=== PATIENT | female | born 1940 | race Caucasian/White ===

== ENCOUNTER 2016-12-15 09:32 | Inpatient (IN) | payer MEDICARE ==
[2016-12-15] VITALS (7 sets, daily range): BP systolic 90–108; BP diastolic 52–62; PULSE 84–105; RESP 13–20; O2SAT 94–96
[~2016-12-15] VITALS: Ht 167.6 cm; Wt 97.6 kg
[2016-12-15] MEDS ORDERED: Lactated Ringer's 1,000 ML IV SCH (11:29)
[2016-12-15] MEDS ORDERED: Polyethylene Glycol (PEG) 17 Gm Powder PO PRN (11:30)
[2016-12-15] MEDS ORDERED: Glucose 40% Oral Gel 15 Gm Tube PO PRN (11:30)
[2016-12-15] MEDS ORDERED: OMEP20CA11 PO (11:35)
[2016-12-15] MEDS ORDERED: FERR-83 PO (11:35)
[2016-12-15] MEDS ORDERED: BENA20TA PO (11:35)
[2016-12-15] MEDS ORDERED: FRSM80T PO (11:35)
[2016-12-15] MEDS ORDERED: SITA100T12 PO (11:35)
[2016-12-15] MEDS ORDERED: CARV25TA2 PO (11:35)
[2016-12-15] MEDS ORDERED: GLIM4TAB2 PO (11:35)
[2016-12-15] MEDS ORDERED: PRAV20TA2 PO (11:35)
--- NOTE | 2016-12-15 11:41 | PCM.HPMED ---
Subjective Date of Service December 15, 2016 Primary Provider: Admitting Physician: Sonu Currie MD Primary Care Physician: Chavez Montoya MD Attending Physician: Sonu Currie MD Admit Status: Full Admit, Admit to [place] Team, Non-Telemetry Chief Complaint: Generalized fatigue, uremia. Possible pneumonia. History of Present Illness: This is a 76-year-old female who was been admitted to [facility] since Friday. They are she has been noted to have progressive acute on chronic renal failure. I believe she has chronic kidney disease stage 3-4. The patient notes that she was diagnosed with possible pneumonia and has been on antibiotics. She has had minimal cough and no dyspnea. No fevers or chills. She has had a slow progressive fatigue. She denies any prominent pruritus. The transfer was for reasons of probable dialysis. Given her progressive acute on chronic renal failure. The patient denies any leg edema above and beyond her chronic edema for which she wears compression stockings. No orthopnea. She denies any confusion but is extremely lethargic. They had talked her about the possibility of kidney treatments to improve her overall symptoms. She is agreeable to this. Resuscitation efforts were also discussed and she is quite clear that she wants to be a DNR/DNI. Review of Systems: She denies fevers or chills. No cough or shortness of breath. She is very fatigued. No diarrhea or blood per rectum. She denies any dysuria. No blood in the urine. They did note a decreased urinary output but no report of an urea. She denies orthopnea by mouth. She has chronic pedal edema. No recent bowel movements. No abdominal pain. She has had persistent nausea and did vomit once this morning. She denies depression but does know she is anxious and intermittently has insomnia. All else reviewed and otherwise negative except as noted in history of present illness Allergies Coded Allergies: No Known Drug Allergies (Verified Allergy, 12/15/16) [facility] [place] Diabetes mellitus 2, on oral agents. Chronic kidney disease stage IV Essential hypertension Surgical History Tubal ligation Cholecystectomy Family History Diabetes mellitus 2 and heart disease Social History Occupation: non- Hx Alcohol Use: No Hx Substance Use: No Hx Tobacco Use: No Living Arrangement: with Family Exam Exam Oriented 3. No distress. Fluent speech. Normal affect.. She is lethargic and slow to answer. She has upper and lower dentures. Normal skull. Normal nose and ears. Anicteric sclera, symmetric pupils Oropharynx is unremarkable, no facial droop. Neck is supple, normal thyroid. No adenopathy. Lungs are clear, normal effort rate. Heart is regular without murmur gallop or rub. Abdomen soft, nondistended or tender. Extremities are normal for 1+ edema both lower extremities. She also has compression stocking on the left lower leg. Good radial and pedal pulses. Skin is free of rash, lesions. No petechiae or ecchymosis. Joints are grossly normal. Cranial nerves are grossly normal. Motor strength is normal in all extremities. Normal muscular tone. Lab and Diagnostics Labs Pending X-Rays, CTs and MRIs Pending Assessment & Plan Acute renal failure, POA. We will obtain labs at this point and find her historical lab values as well. Nephrology is consulted for probable initiation of dialysis. Chronic kidney disease stage III or 4, POA. We will obtain her baseline indices Coronary pneumonia, POA. We will continue ceftriaxone and azithromycin as well as repeat chest x-ray. Diabetes most 2, POA. We will simply use correctional lispro at this point and check an A1c Essential hypertension, POA. We will obtain her medication history and resume usual medications as appropriate. We will follow clinically. She is DNR/DNI. This was confirmed today. Pain Evaluation: Adequate Pain Control Resuscitation Status: DNR/DNI:Do Not Resuscitate/Intubate Time spent 40 minutes Sonu Currie MD December 15, 2016 11:41
[2016-12-15] MEDS: Insulin LISPRO 300 Unit/3 mL Inj SUBQ SCH ×3 (12:00→22:00)
[2016-12-15] MEDS ORDERED: ALLO300T2 (12:09)
[2016-12-15] MEDS: Ondansetron 2 mg/mL 2 mL Inj IVPUSH PRN ×2 (12:15→20:29)
[2016-12-15] MEDS: Heparin 5,000 Unit/mL Inj SUBQ SCH ×3 (12:16→22:57)
--- NOTE | 2016-12-15 12:27 | DRSVH ---
PROCEDURE: X-RAY CHEST ONE VIEW, PORTABLE ([id number]) INDICATIONS: weakness TECHNIQUE: One view of the chest was acquired. COMPARISON: None. FINDINGS: Surgical changes and devices: Surgical clip at the gastroesophageal junction Lungs and pleura: No pleural effusions or pneumothorax. Lung volumes are low. Patchy opacity of the left lung base suspicious for atelectasis versus pneumonia. Streaky opacity noted in the right lung base likely represent atelectasis. Mediastinum: Mediastinal contours appear normal. Heart size is normal. Bones and chest wall: No suspicious bony lesions. Overlying soft tissues appear unremarkable. IMPRESSION: Patchy opacity in left lung base suspicious for atelectasis versus pneumonia. Dictated by: Taylor Van MD, PhD on 12/15/2016 at 12:24 Approved by: Taylor Van MD, PhD on 12/15/2016 at 12:25
[2016-12-15 12:34] LABS: Mean Corpuscular Hemoglobin 26.5 pg (27.0-35.0); Mean Corpuscular Volume 88.5 fL (81-100); NEUTROPHILS % (AUTO) 86.1 % (40-74); Platelet Count 145 bil/L (150-400)
[2016-12-15 12:35] LABS: BASOPHILS % (AUTO) 0.1 % (0-3); EOSINOPHILS % (AUTO) 0.3 % (0-5); MONOCYTES % (AUTO) 5.3 % (4-12)
[2016-12-15] MEDS: cefTRIAXone Inj 1,000 MG in Dextrose 5% Minibag Plus 50 ML IV SCH (13:52)
[2016-12-15] MEDS: Pantoprazole 20 mg ER24 Tablet PO SCH (13:52)
[2016-12-15] MEDS ORDERED: 0.9% Sodium Chloride 100 ML ONE (14:02)
[2016-12-15] MEDS ORDERED: Aspirin-Caffeine-Butalbital Tablet PO PRN (14:05)
--- NOTE | 2016-12-15 15:00 | NUR ---
MOC Admit Received patient from [facility] transported by EMT, A/O x3. With 2 peripheral IV access, patent and intact. On oxygen @ 2L via Seen by Dr. Currie upon arrival, made orders. Critical lab results relayed and Dr. Elizabeth aware. Awaiting PT evaluation. Nephro consult with Dr. Zhu. Patient will be on NPO after midnight, IVF on saline lock. Will monitor BP closely.
[2016-12-15] MEDS ORDERED: Albuterol 2.5 mg/3 mL Inhalation Solution NEB ONE (15:40)
[2016-12-15] MEDS ORDERED: Bumetanide 0.25 mg/mL 4 mL Inj IV ONE (15:40)
[2016-12-15] MEDS ORDERED: Bumetanide 0.25 mg/mL 10 mL Inj IV ONE (15:45)
[2016-12-15] MEDS ORDERED: Insulin Human REGular 300 Unit/3 mL Inj IV SCH (15:45)
[2016-12-15] MEDS ORDERED: Sodium Bicarb (50 mEq) 8.4% 1 mEq/mL 50 mL Syringe IVPUSH ONE (16:05)
--- NOTE | 2016-12-15 17:59 | CONS ---
[address] [address] CONSULTATION REPORT PATIENT: RAYSHAWN VELIZ : 1940 MR#: [id number] ADMIT: 12/15/2016 JOB ID: [id number] DATE OF SERVICE: 12/15/2016 REQUESTING PHYSICIAN: Dr. Sonu Currie. REASON FOR CONSULTATION: Management of end-stage renal disease. CHIEF COMPLAINT: Weakness, transferred from [facility] for initiation of hemodialysis. HISTORY OF PRESENT ILLNESS: This is a 76-year-old, lady with significant past medical history of type 2 diabetes, chronic kidney disease, hypertension who was transferred from [facility] for initiation of hemodialysis. The patient presented to the emergency department at [facility] with a complaint of weakness and decreased level of consciousness. The patient was taken by her relatives to the fire station and was found to have a sugar level of 33. The patient was later on sent to the emergency department at [facility]. She was told that she had pneumonia. The initial blood work that was done on December 13 showed WBC of 11.7, hemoglobin of 8.0, INR 1.0. Sodium 135, potassium 4.2, chloride 98, bicarb 23, BUN 158, creatinine 4.4, glucose of 36. The patient was started on antibiotics for community-acquired pneumonia. Apparently today, a repeat basic metabolic panel showed worsening kidney function, and I was contacted by hospitalist to accept her for initiation of hemodialysis. The patient was evaluated by Dr. Santiago on November 26, 2016. Per his note, the patient had history of stage 4 chronic kidney disease. There was no outpatient laboratory available for me to review. During my visit today, the patient complains of having low energy level. She has very poor appetite. She has had chronic lower extremity swelling. Her urine output has been low since 4 o'clock in the morning. She had history of insomnia. She has no history of PND nor orthopnea. She has no worsening shortness of breath, however, she does have history of dyspnea on exertion. Patient denies history of fever or chills. No diarrhea but positive for nausea and vomiting. Her initial blood pressure was 90/52. Per her family, they reported that this has been better. Her blood pressure was a lot lower at the [facility] which was in the 70s systolic. PAST MEDICAL HISTORY: 1. Type 2 diabetes. 2. Hypertension. 3. Dyslipidemia. 4. Denies history of heart attack, heart failure or irregular heart rhythm. 5. Denies history of CVA. 6. No history of diabetic retinopathy. PAST SURGICAL HISTORY: 1. Status post cholecystectomy. 2. Status post tubal ligation. FAMILY HISTORY: Positive for history of heart disease and diabetes in the family. SOCIAL HISTORY: Denies current use of alcohol, tobacco, illicit drugs. ALLERGIES: No known drug allergies. MEDICATIONS: 1. Allopurinol. 2. Benazepril. 3. Carvedilol. 4. Ferrous sulfate. 5. Furosemide. 6. Glimepiride. 7. Omeprazole. 8. Pravastatin. 9. Sitagliptin. REVIEW OF SYSTEMS: Constitutional: No fever, no chills. Positive for poor appetite. Insomnia. HEENT: No headaches. No blurred vision. Cardiovascular: No chest pain. No palpitations. Lungs: Positive for dyspnea on exertion. No cough. No hemoptysis. Newly diagnosed pneumonia from [facility]. GI: Positive for nausea, vomiting. No diarrhea. : Low urine output. Musculoskeletal: Positive for lower extremity swelling for several months. No joint tenderness. Neuro: No neurological deficit. No history of diabetic retinopathy. PHYSICAL EXAMINATION: Vitals: Temperature, pulse 84, respiratory rate 22, blood pressure 90/52, O2 sat 94% on nasal cannula. General appearance: Chronically ill-looking in no acute distress. HEENT: Moderate pallor. No jaundice. No JVD. No lymphadenopathy. No thyroid enlargement. Heart: Regular rhythm. Normal S1, S2. No murmurs, rubs, or gallops. Lungs: Decreased breath sound at bases. No wheezing. No rhonchi. Abdomen: Soft, mild distention, nontender. No hepatosplenomegaly. Extremities: 3+ edema of the lower extremities. Chest x-ray showed patchy opacities in left lung base suspicious for atelectasis versus pneumonia. LABORATORY DATA: Sodium 125, potassium 6.0, chloride 90, bicarb 16, BUN 150, creatinine 4.16, glucose 141, calcium 7.6, magnesium 2.0, albumin 3.1. WBC 11.8, hemoglobin 8.5. ASSESSMENT: 1. Severe renal insufficiency, likely stage 5 chronic kidney disease, related to longstanding type 2 diabetes. 2. Dilutional hyponatremia. 3. Hyperkalemia. 4. Anion gap metabolic acidosis. 5. Uremia. 6. Community-acquired pneumonia. 7. Anemia of chronic kidney disease. 8. Hypotension. PLAN: 1. Per a renal standpoint, we will arrange for tunnel catheter placement tomorrow. We will start 1st hemodialysis in the morning. We will treat hyperkalemia medically. 2. We will consult rn social services to arrange for outpatient hemodialysis. 3. Will decrease Coreg dosage. 4. Will try IV Bumex to see if it will improve her urine output. 5. Will order anemia workup. 6. Will order hepatitis panel and HIV. 7. Will discontinue IV fluids. 8. Fluid restriction 1 L per day. 9. Continue to monitor her blood pressure if it deteriorates. I would recommend transfer to CCU for vasopressors. Since she now has increased total body volume, I am afraid that giving more fluids will worsen her respiratory symptoms. 10. Will order a 2D echo. Thank you for allowing me to participate in the care of your patient. We will monitor along with you. FRIDA
[2016-12-15] MEDS ORDERED: Ondansetron 2 mg/mL 2 mL Inj IVPUSH ONE (21:10)
[2016-12-16] VITALS (10 sets, daily range): BP systolic 84–119; BP diastolic 50–64; PULSE 81–112; RESP 15–21; O2SAT 92–95
[2016-12-16 04:49] LABS: APPEARANCE,URINE CLEAR (CLEAR,HAZY); COLOR,URINE YELLOW (YELLOW); OCCULT BLOOD,URINE NEGATIVE (NEGATIVE); UROBILINOGEN,URINE NORMAL (NORMAL)
--- NOTE | 2016-12-16 06:24 | NUR ---
Shift Note Assume pt care at 1900, pt a/o,notable TAZLINA, Bp trends systolic mid 90's to low 100's tonight, at 0530 and 0545, Bp down to 88/50 and 84/51, pt asymptomatic, Dr. Duncan aware, no new orders, Bp rechecked at 0620 at 92/51, remains asymptomatic. scheduled HS coreg held this shift. Pt able to void total 350mls,with 0ml PVR scans.
[2016-12-16] MEDS: Pantoprazole 20 mg ER24 Tablet PO SCH (06:30)
[2016-12-16 06:44] LABS: BASOPHILS % (AUTO) 0.1 % (0-3); EOSINOPHILS % (AUTO) 1.2 % (0-5); Mean Corpuscular Hemoglobin 26.5 pg (27.0-35.0); Mean Corpuscular Volume 87.1 fL (81-100); NEUTROPHILS % (AUTO) 83.1 % (40-74); Platelet Count 161 bil/L (150-400)
[2016-12-16 07:12] LABS: Phosphorus 8.9 mg/dL (2.5-4.9); Unsaturated Iron Binding 185.2 ug/dL
[2016-12-16] MEDS: Insulin LISPRO 300 Unit/3 mL Inj SUBQ SCH ×4 (08:00→22:00)
[2016-12-16] MEDS: Heparin 5,000 Unit/mL Inj SUBQ SCH ×3 (08:30→19:52)
--- NOTE | 2016-12-16 09:00 | NUR ---
Hypoglycemia Patient CBG = 42, patient awake and responsive, will follow protocol. Pharmacy contacted due to unavailability of D50, 10% dextrose was administered instead. Will re checked BG post administration. Will continue to monitor at this time.
[2016-12-16] MEDS ORDERED: Dextrose 10% 250 ML IV ONE (09:10)
--- NOTE | 2016-12-16 09:19 | PCM.PNMED ---
Subjective Date of Service December 16, 2016 Subjective No new complaints or events. Patient hard of hearing. Patient lethargic and fatigued. Awaiting tunneled catheter placement and initiation of dialysis today Exam Vital Signs Vital Sign - Last Date Time Temp Pulse Resp B/P Pulse Ox O2 Delivery O2 Flow Rate FiO2 12/16/16 09:02 90 12/16/16 06:19 92/51 12/16/16 02:45 36.8 15 93 Nasal Cannula 2.00 Intake and Output 12/15/16 12/15/16 12/16/16 Cumulative From/Thru 15:00 23:00 07:00 12/15/16 17:47 - 12/16/16 05:28 Intake Total 709 ml 450 ml 1159 ml Output Total 550 ml 350 ml 900 ml Balance 159 ml 100 ml 259 ml Intake Oral 350 ml 450 ml 800 ml IV Total 359 ml 359 ml Output Urine Total 250 ml 350 ml 600 ml Emesis 300 ml 300 ml # Bowel Movements 1 1 Exam Oriented 3. No distress. Fluent speech. Normal affect.. She is lethargic and slow to answer. She has upper and lower dentures. Normal skull. Normal nose and ears. Anicteric sclera, symmetric pupils Oropharynx is unremarkable, no facial droop. Neck is supple, normal thyroid. No adenopathy. Lungs are clear, normal effort rate. Heart is regular without murmur gallop or rub. Abdomen soft, nondistended or tender. Extremities are normal for 1+ edema both lower extremities. She also has compression stocking on the left lower leg. Good radial and pedal pulses. Skin is free of rash, lesions. No petechiae or ecchymosis. Joints are grossly normal. Cranial nerves are grossly normal. Motor strength is normal in all extremities. Normal muscular tone. IVs and Medications Medications Reviewed: Medications were reviewed in detail Lab and Diagnostics Result Diagram: 12/16/16 0600 12/16/16 0600 X-Rays, CTs and MRIs PROCEDURE: X-RAY CHEST ONE VIEW, PORTABLE ([id number]) INDICATIONS: weakness IMPRESSION: Patchy opacity in left lung base suspicious for atelectasis versus pneumonia. Dictated by: Taylor Van MD, PhD on 12/15/2016 at 12:24 Assessment & Plan # KINZA on CKD 4 vs CKD 5 , POA. -Nephrology consulted -Patient with symptoms of uremia with significant fatigue, hyperkalemia, metabolic acidosis -Awaiting tunneled catheter placement and initiation of dialysis today # Chronic kidney disease stage III or 4, POA. We will obtain her baseline indices #Community-acquired pneumonia, POA. We will continue ceftriaxone and azithromycin # Diabetes most 2, POA. We will simply use correctional lispro at this point and check an A1c # Essential hypertension, POA. We will obtain her medication history and resume usual medications as appropriate. We will follow clinically. She is DNR/DNI. Resuscitation Status: DNR/DNI:Do Not Resuscitate/Intubate Jeancarlos Gomes MD December 16, 2016 09:19
--- NOTE | 2016-12-16 10:01 | NUR ---
Social Work: Initial Assessment Data & Assessment: See Initial Assessment. EMR reviewed. Patient is a 76 y/o female that admitted on 12/15/16 for Acute on chronic renal failure. SW attempted to meet with patient at bedside and complete initial assessment, but the patient was asleep. SW called patient's son, Jj Ochoa [phone], and completed initial assessment, SW role reviewed, and discharge planning discussed. Patient's PCP is Dr. Chavez Montoya and patient's insurance is [employer]. Per patient's son she has no LTC or VA benefits. Patient's re-admit score is 1 no risk. Patient's son reported that the patient does have an Advance Directive/DPOA, and he will bring a copy to the hospital. Patient lives at home with her son where she is independent with ambulation. Patient has no DME and has no HH or detention facility history. Patient is currently needing O2 at the hospital, but does not have O2 at home. SW will continue to follow patient for discharge planning needs. SW wrote contact information on patient's white board. Plan: Patient will likely discharge home with her son. SW will continue to follow and assist patient throughout stay. Piedad Degroot LMSW, ROSMERY Addendum: 12/16/16 at 1014 by PIEDAD DEGROOT Amended: Links added.
[2016-12-16] MEDS: Azithromycin Inj 500 MG in Dextrose 5% w/Vial Mate 250 ML IV SCH (10:21)
--- NOTE | 2016-12-16 10:41 | DRSVH ---
[facility] [address] [place] [address] Echocardiogram Report Name: RAYSHAWN VELIZ EStudy Date: 12/16/2016 Height : 69 in Hospital Exam Location: [facility] Weight : 208 lb Gender: Female BSA: 2 .1 m2 : 1940 Age: 76 yrs BP: 92 /51 mmHg Reason For Study: Fluid overload, chronic kidney disease Performed By: Maryse Shearer Referring Physician: ANTOINETTE IBARRA Interpretation Summary The left ventricular cavity is small. There is mild concentric left ventricular hypertrophy. Left ventricular systolic function is low normal. The ejection fraction is estimated to be 50-55%. The right ventricle is mild to moderately dilated. Right ventricular systolic function is mildly reduced. Flattened septum is consistent with RV pressure/volume overload. The right ventricular systolic pressure is estimated at 34 mmHg assuming a right atrial pressure of 15 mm Hg. The left atrial size is normal. The right atrium is mildly dilated. There is moderate tricuspid regurgitation. There is no other significant valvular heart disease. The aortic root is normal size. There is a small loculated pericardial effusion located inferiorly. There is a moderate left-sided pleural effusion. There are no echocardiographic indications of cardiac tamponade. Procedure: A two-dimensional transthoracic echocardiogram with color flow and Doppler was performed. The study quality was technically adequate. There is no prior echocardiogram noted for this patient. Patient was imaged partially upright; unable to lay supine on left side. The patient was in atrial fibrillation with controlled ventricular rate during the exam. Left Ventricle: The left ventricular cavity is small. There is mild concentric left ventricular hypertrophy. There is no thrombus. Left ventricular systolic function is low normal. The ejection fraction is estimated to be 50-55%. Flattened septum is consistent with RV pressure/volume overload. There are no focal wall motion abnormalities. Diastolic function could not be accurately assessed due to atrial fibrillation. Right Ventricle: The right ventricle is mild to moderately dilated. Right ventricular systolic function is mildly reduced. Atria: The left atrial size is normal. The right atrium is mildly dilated. The interatrial septum is intact with no evidence for an atrial septal defect. Mitral Valve: The mitral valve leaflets appear borderline thickened, but open well. There is mild mitral annular calcification. There is trace mitral regurgitation. Aortic Valve: The aortic valve is normal in structure and function. No aortic regurgitation is present. Tricuspid Valve: The tricuspid valve is normal. There is moderate tricuspid regurgitation. The right ventricular systolic pressure is estimated at 34 mmHg assuming a right atrial pressure of 15 mm Hg. Pulmonic Valve: The pulmonic valve is not well visualized. There is trace pulmonic regurgitation. There is no other significant valvular heart disease. Great Vessels: The aortic root is normal size. The ascending aorta is normal in size. The IVC is dilated (diameter is greater than 2.1 cm) and it collapses less than 50% with a sniff. This suggests a high right atrial pressure of 15 mm Hg. Pericardium/ Pleura There is an anterior echo-free space consistent with a fat pad. There is a small loculated pericardial effusion. There are no echocardiographic indications of cardiac tamponade. There is a moderate left- sided pleural effusion. MMode/2D Measurements & Calculations LVIDd: 5.2 cm RA long axis LVOT diam LVIDs: 3.8 cm LA A2 area: 15.8 cm FS: 26.7 % LA A4 area: 22.0 cm RA area Ao root diam EPSS: 0.67 cm LA length (vol): 5.4 cm IVSd: 1.1 cm LA vol: 54.3 ml : 20.3 cm asc Aorta LVPWd: 1.2 cm LA vol index RA vol: 64.0 mlDiam: 2.9 cm RA : 30.5 mm2 IVC diam: 2.8 cm LV hernadez. diameter/BSA LV sys. diameter/BSA TAPSE: 1.4 cm (cm/m^2): 2.5 (cm/m^2): 1.8 Doppler Measurements & Calculations Ao V2 max TR max jamar: 220.3 cm/secAo V2 mean LV V1 max PG : 141.4 cm/sec TR max P.5 mmHg : 107.4 cm/sec Ao max P.0 mmHgPA V2 max: 70.2 cm/sec Ao V2 VTI: 27.9 cmLV V1 VTI Ao mean PG PA mean P.93 mmHg : 20.6 cm KAT(V,D): 2.4 cm2 LVOT Max Jamar : 114.0 cm/sec KAT(I,D): 2.2 cm sev ratio: 0.74 PA V2 mean KAT indexed to BSA : 45.0 cm/sec (cm^2/m^2): 1.1 PA pr(Accel) : 22.5 mmHg Reading Physician:EMRE
[2016-12-16] MEDS: cefTRIAXone Inj 1,000 MG in Dextrose 5% Minibag Plus 50 ML IV SCH (13:41)
[2016-12-16] MEDS: Dextrose 10% 250 ML IV PRN ×2 (14:41→21:51)
--- NOTE | 2016-12-16 23:13 | NUR ---
Hypoglycemia Pt c/o being dizzy. Pt seemed somewhat drowsy at about 2104. BP 89/53 which is not abnormal for pt. Pt Blood Sugar checked and was 37 at 2114. Pt is now less responsive and per Janie FREEMAN Pt given some chocolate pudding and orange juice. Also Oral gel 15 obtained and given. Pt BS at 2129 was 44. PCC charge in room and Pt BS at 2144 39 and pt continues to be drowsy but awakens when prompted but shuts eyes during interaction. D10 in 250 ml given due to pt last BS declining. Pt BS at 2199 was 108. Pt being transferred per Lorri FREEMAN. Pt off unit at 2209. Report Given to Torie Clark at 2224.
--- NOTE | 2016-12-16 23:14 | NUR ---
Transfer Patient transferred to room 2020 at 2230. Bag of belongings moved to closet in new room. BG 105 on arrival. Patient given toast with peanut butter and a chocolate pudding. Plan for NPO status at midnight for tunnel catheter placement. Patient aware. Continue to monitor.
[2016-12-17] VITALS (15 sets, daily range): BP systolic 92–118; BP diastolic 51–76; PULSE 104–118; RESP 18–32; O2SAT 86–96
[2016-12-17] MEDS ORDERED: Dextrose 10% 1,000 ML IV PRN (02:40)
[2016-12-17 03:12] LABS: Vitamin D, 25-Hydroxy 8.6 ng/mL (30.0-100.0)
--- NOTE | 2016-12-17 04:21 | NUR ---
Hypoglycemia Blood sugars continue to be low. Patient given 250ml bolus of D10 (pharmacy is out of dextrose pushes so this is what is ordered as substitute) but blood sugars do not maintain. See intervention charting for details. PO intake does not increase BGs either and patient is NPO for tunnel catheter placement this morning. MD updated multiple times through shift on patient condition and is aware that D10 currently is infusing at 200ml/hr. Patient denies increasing shortness of breath. Lungs sound crackley but not worse than when she transferred to floor. Shortness of breath has not increased with activity. Continue to monitor closely.
[2016-12-17] MEDS: Ondansetron 2 mg/mL 2 mL Inj IVPUSH PRN ×3 (05:01→22:25)
[2016-12-17] MEDS: Pantoprazole 20 mg ER24 Tablet PO SCH (05:03)
[2016-12-17 05:19] LABS: BASOPHILS % (AUTO) 0.1 % (0-3); EOSINOPHILS % (AUTO) 2.8 % (0-5); Mean Corpuscular Hemoglobin 26.5 pg (27.0-35.0); Mean Corpuscular Volume 86.1 fL (81-100); NEUTROPHILS % (AUTO) 80.8 % (40-74); Platelet Count 150 bil/L (150-400)
[2016-12-17 07:10] LABS: Vitamin B12 1156 pg/mL (211-946)
[2016-12-17] MEDS ORDERED: Heparin 10,000 Unit/1,000 mL NS Premix IV ONE (07:35)
[2016-12-17] MEDS: Insulin LISPRO 300 Unit/3 mL Inj SUBQ SCH ×3 (08:00→17:14)
[2016-12-17] MEDS: Furosemide 10 mg/mL 4 mL Inj IVPUSH ONE (08:40)
[2016-12-17] MEDS ORDERED: Heparin 1,000 Unit/mL 10 mL Inj ONE (09:11)
[2016-12-17] MEDS ORDERED: fentaNYL-PF 50 mCg/mL 2 mL Inj ONE (09:12)
[2016-12-17] MEDS ORDERED: Dextrose 50% Water 50 mL Inj IV ONE (09:29)
--- NOTE | 2016-12-17 09:39 | NUR ---
D50 shortage/hypoglycemia/IR 0715 BG 54, D10 infusion increased to 225 ml/hr. There is a national D50 shortage and pt is NPO. Pt scheduled to get a dilaysis line placed in IR today and is NPO. Dr Santiago phoned and I voiced concern that pt is fluid overloaded and orthopnic, pt is also very anxious about having to lie flat. Orders for stat lasix recieved. Delay in lasix stat due to priority of nursing care. Delay in assesment due to priority of nursing care I was with another critical patient until 0945. At approx 0800 IR sees pt and reassures her that she will not be flat. 0815 pt goes ot IR.
--- NOTE | 2016-12-17 10:02 | PCM.PNNEPH ---
Subjective Date of Service December 16, 2016 Subjective Patient was supposed to get a tunneled catheter this morning however she did not have batteries for her. And I was unable to fully explain the procedure and plan. Retired family arrived in the afternoon this too late to get her scheduled for this. Her intake and output last 2415 825 out. She continues to have some persistent hypoglycemia which is responsive to oral and intravenous glucose. She denies any headache, chest pain, shortness of breath, nausea or vomiting. In discussing her case with her family the family states that her appetite is very poor over the last few weeks and she is having some worsening memory problems which is being written off his dementia when in fact may be some component of uremic encephalopathy. Exam Vital Signs Vital Sign - Last Date Time Temp Pulse Resp B/P Pulse Ox O2 Delivery O2 Flow Rate FiO2 12/17/16 04:57 35.6 109 20 95/58 92 Nasal Cannula 3.00 Intake and Output 12/16/16 12/16/16 12/17/16 Cumulative From/Thru 15:00 23:00 07:00 12/15/16 17:47 - 12/17/16 06:06 Intake Total 700 ml 639 ml 2498 ml Output Total 275 ml 200 ml 1375 ml Balance 425 ml 439 ml 1123 ml Intake Oral 100 ml 900 ml IV Total 600 ml 639 ml 1598 ml Output Urine Total 275 ml 200 ml 1075 ml Emesis 300 ml # Bowel Movements 1 2 Exam HEENT examination is remarkable for pale sclerae and uremic feet or on her breath. Neck is supple without adenopathy or thyromegaly. She does have some jugular venous distention at 90. Lungs showed a few bibasilar rales. Heart is regular and rhythmical with a soft systolic murmur. Abdomen is soft without any tenderness or rebound guarding masses or hepatosplenomegaly. Shows some mild lower extremity edema pitting edema to her knees. Skin turgor is good. Neurological examination is remarkable for mild resting and intention tremor but no asterixis was noted. Lab and Diagnostics Result Diagram: 12/17/16 0510 12/17/16 0510 X-Rays, CTs and MRIs PROCEDURE: X-RAY CHEST ONE VIEW, PORTABLE ([id number]) INDICATIONS: weakness IMPRESSION: Patchy opacity in left lung base suspicious for atelectasis versus pneumonia. Dictated by: Taylor Van MD, PhD on 12/15/2016 at 12:24 Plan Impression Impression #1 acute on chronic kidney injury #2 end-stage renal disease #3 symptomatic uremia #4 hypertension with hypertensive heart disease and hypertensive nephrosclerosis Recommendations #1 continue to supplement her glucose and make arrangements for her to get a catheter tomorrow and dialysis. Chay Santiago DO December 17, 2016 10:02
--- NOTE | 2016-12-17 10:08 | PCM.PNNEPH ---
Subjective Date of Service December 17, 2016 Subjective The patient has had persistent hypoglycemia over the last 24 hours. This morning she was started on a D10 drip. Unfortunately this is resulted with her getting more short of breath and the patient is scheduled to get a tunneled catheter today. Intake and output for the last 24 hours for 1150 in December 19 out. This morning her sodium is 125, potassium 4.6, chloride of 87, bicarbonate 16, BUN and creatinine were 149 and 4.96. Her hemoglobin is 8.2. Exam Vital Signs Vital Sign - Last Date Time Temp Pulse Resp B/P Pulse Ox O2 Delivery O2 Flow Rate FiO2 12/17/16 09:55 104 24 99/76 92 Nasal Cannula 3.00 12/17/16 04:57 35.6 Intake and Output 12/16/16 12/16/16 12/17/16 Cumulative From/Thru 15:00 23:00 07:00 12/15/16 17:47 - 12/17/16 06:06 Intake Total 700 ml 639 ml 2498 ml Output Total 275 ml 200 ml 1375 ml Balance 425 ml 439 ml 1123 ml Intake Oral 100 ml 900 ml IV Total 600 ml 639 ml 1598 ml Output Urine Total 275 ml 200 ml 1075 ml Emesis 300 ml # Bowel Movements 1 2 Exam HEENT examination is remarkable for pale sclera and uremic feet 4.. Neck is supple without adenopathy thyromegaly some moderate venous distention at 90. Lungs showed bibasilar rales about mcc up bilaterally. Heart is regular. Soft systolic murmur. Abdomen is soft without any tenderness or rebound guarding masses or hepatosplenomegaly. Extremities show any evidence of any clubbing, cyanosis, or edema. Skin turgor is good. Lab and Diagnostics Result Diagram: 12/17/16 0510 12/17/16 0510 X-Rays, CTs and MRIs PROCEDURE: X-RAY CHEST ONE VIEW, PORTABLE ([id number]) INDICATIONS: weakness IMPRESSION: Patchy opacity in left lung base suspicious for atelectasis versus pneumonia. 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 I would like to try to take 2-3 L as possible. I will reschedule her for subsequent treatment tomorrow and the next several days. Should she have any more hypoglycemic episodes I would recommend D 20 at no more than 100 now. Chay Santiago DO December 17, 2016 10:08
--- NOTE | 2016-12-17 10:20 | NUR ---
Pt tx to [facility] for dialysis. Report to polo Gutierrez/ dialysis nurse. Pt is stable, son in attendance.
[2016-12-17] MEDS ORDERED: SODIUM CHLORIDE 0.9% IV ONE (10:45)
[2016-12-17] MEDS ORDERED: DESMOPRESSIN IV ONE (10:45)
[2016-12-17] MEDS ORDERED: Albumin 25% 100 ML IV ONE (11:55)
--- NOTE | 2016-12-17 13:42 | NUR ---
lasix not given stat lasix 120 mg not given as pt BP is 90/56
--- NOTE | 2016-12-17 13:50 | NUR ---
Dialysis note First HD tx X 3 hrs. 1000ml net UF removed New R tunnelled catheter. Dsg changed for moderate blood oozing VSS. See DTR for complete vitals. Hypotensive thru tx with SBP in the 70's-80's. Dr. Santiago aware and Albumin given 25gm IV with good results. Off BP 84/56 HR 117. D 10 is off and BG were 69 and 70 during tx. Pt will eat lunch upon returning to the floor. DDAVP 21mcg given Reports feeling better after tx. Report given and pt returned to floor stable.
--- NOTE | 2016-12-17 14:11 | DRSVH ---
PROCEDURE: CV TUNNEL CATH PLCMNT 1. Sonographic guidance for venous access. 2. Conscious sedation for 44 minutes. 3. Right internal jugular vein tunneled hemodialysis catheter placement. 4. Fluoroscopic guidance for catheter placement. INDICATIONS: End-stage renal disease. TECHNIQUE: The indications, alternatives, benefits, risks, and complications of the procedure were e xplained to the patient and any family members present. Informed written consent was obtained and pl aced in the chart. The patient was brought to the angiography suite, and conscious sedation was admi nistered intravenously by nursing home staff, while continuous cardiorespiratory monitoring was pe rformed. Maximum sterile barrier technique was employed per standard protocol, including hand hygiene, cap, ma sk, sterile gown and gloves, and 2% chlorhexidine. Sterile ultrasound probe cover was also utilized. 1% lidocaine was used for local anaesthesia. Under sonographic guidance, the right internal jugular vein was accessed with a Micropuncture set. An 0.035J wire was advanced into the vena cava. Subcuta neous tunnel was created within the right anterior chest wall, through which a 14.5 [place] double lum en tunneled hemodialysis catheter was advanced. Following sequential venotomy tract dilation, the ca theter was advanced through the peel-away sheath and the tip was placed at the cavoatrial junction. Peel-away sheath was removed. Adequate flow was obtained through both lumens of the catheter. The v enotomy was closed with Vicryl, and the catheter was fastened to the sking with Ticron. Both lumens were flushed with heparinized saline. The patient tolerated the procedure without difficulty and was in stable condition at the conclusion of the procedure. COMPARISON: None. FINDINGS: The right internal jugular vein is patent by ultrasound. Fluoroscopic imaging demonstrates tip of th e catheter at the cavoatrial junction. IMPRESSION: Right internal jugular vein tunneled hemodialysis catheter placement using sonographic and fluoroscop ic guidance. Dictated by: Bhupinder Solares M.D. on 12/17/2016 at 14:09 Approved by: Bhupinder Solares M.D. on 12/17/2016 at 14:09
[2016-12-17] MEDS: Azithromycin Inj 500 MG in Dextrose 5% w/Vial Mate 250 ML IV SCH (14:51)
[2016-12-17] MEDS: Heparin 5,000 Unit/mL Inj SUBQ SCH ×2 (14:52→16:30)
--- NOTE | 2016-12-17 16:55 | PCM.PNMED ---
Subjective Date of Service December 17, 2016 Subjective Katharine Ochoa is a 76-year-old woman with past medical history significant for type II diabetes on oral agents and CTD stage IV was currently under treatment for acute kidney injury. Hospital day #3 Overnight: The patient had repeat episodes of hypoglycemia. She had to be started on a D10 infusion as the hospitalization out of D50. Today: Patient had her tunnel catheter placed and underwent her first round of dialysis. She states that she does feel a bit better after that she feels quite nauseous. She states that she has been noticing that she feels very tired and uncomfortable when his blood sugar drops. The remainder review of systems is negative except as noted above. Exam Vital Signs Vital Sign - Last Date Time Temp Pulse Resp B/P Pulse Ox O2 Delivery O2 Flow Rate FiO2 12/17/16 11:14 106 12/17/16 11:01 36.0 24 118/60 94 Nasal Cannula 3.00 Intake and Output 12/16/16 12/16/16 12/17/16 Cumulative From/Thru 15:00 23:00 07:00 12/15/16 17:47 - 12/17/16 06:06 Intake Total 700 ml 639 ml 2498 ml Output Total 275 ml 200 ml 1375 ml Balance 425 ml 439 ml 1123 ml Intake Oral 100 ml 900 ml IV Total 600 ml 639 ml 1598 ml Output Urine Total 275 ml 200 ml 1075 ml Emesis 300 ml # Bowel Movements 1 2 Exam Oriented 3. No distress. Fluent speech. Normal affect.. She is lethargic and slow to answer. She has upper and lower dentures. Normal skull. Normal nose and ears. Anicteric sclera, symmetric pupils Oropharynx is unremarkable, no facial droop. Neck is supple, normal thyroid. No adenopathy. Bilateral basilar crackles appreciated. Normal rate and effort. Tunnel catheter appreciated at the right chest without significant bleeding noted. Heart is regular without murmur gallop or rub. Abdomen soft, nondistended or tender. Extremities are normal for 1+ edema both lower extremities. Myoclonus has noted especially significant in the left upper extremity. Skin is free of rash, lesions. No petechiae or ecchymosis. Joints are grossly normal. Cranial nerves are grossly normal. Motor strength is normal in all extremities. Normal muscular tone. IVs and Medications Medications Reviewed: Medications were reviewed in detail Lab and Diagnostics Result Diagram: 12/17/16 0510 12/17/16 0510 X-Rays, CTs and MRIs X-RAY CHEST ONE VIEW, PORTABLE IMPRESSION: Patchy opacity in left lung base suspicious for atelectasis versus pneumonia. Dictated by: Taylor Van MD, PhD on 12/15/2016 at 12:24 Assessment & Plan Katharine Ochoa is a 76-year-old woman with past medical history significant for type II diabetes on oral agents and CTD stage IV was currently under treatment for acute kidney injury. Hospital day #3 Acute kidney injury on chronic kidney disease stage IV/V, present on admission, ongoing. -Nephrology consulted -Patient with symptoms of uremia with significant fatigue, hyperkalemia, metabolic acidosis -Status post tunneled catheter placement and initiation of dialysis today High anion gap metabolic acidosis likely secondary to renal failure, present on admission, active -Hemodialysis per nephrology. Community-acquired pneumonia, present on admission, -We will continue ceftriaxone and azithromycin. Antibiotics day #3 Diabetes mellitus type II, on oral agents, with recurrent episodes of hypoglycemia -Per review of patient's outpatient records she is on sulfonylurea for her diabetes which does have a renal metabolite -The patient's hypoglycemia should resolve as the sulfonylurea slowly metabolized. However, if tomorrow we do not see an improvement in her glucose we should consider checking ketones and C-peptide. Dilutional hyponatremia, present on admission, active -Anticipate improvement after hemodialysis. Normocytic anemia, likely multifactorial, likely secondary to iron deficiency anemia and chronic kidney disease, stable -Continue to monitor. -Consider IV iron infusion after patient's infection has resolved. Will defer to nephrology regarding EPO. Essential hypertension, present on admission -She has been normotensive and borderline hypotensive during her stay. Home blood pressure medications will be held off at this time. She is DNR/DNI. Disposition: Dissipate patient will be in the hospital for 1-2 more days as she is evaluated and treated for the above conditions. VTE Prophylaxis: Sub-Q Heparin (Unfractionated) Resuscitation Status: DNR/DNI:Do Not Resuscitate/Intubate Attending Statement I interviewed and examined the patient on rounds today. Persistent hypoglycemia 4 days after last sulfonylurea seems curious. I agree with the assessment and plan as stated above. Angélica Philip DO December 17, 2016 15:00 Dennis Moura MD December 17, 2016 17:03
[2016-12-17] MEDS: cefTRIAXone Inj 1,000 MG in Dextrose 5% Minibag Plus 50 ML IV SCH (17:08)
--- NOTE | 2016-12-17 17:46 | NUR ---
SOB/ BG's Pt SOB, wheezes worse, shaky, pale, diaphoretic. spo2 84 on 3L, increased O2 to 6L, pt now 94%. Bg is 168, Dr echeverria notified and insulin dc'd
[2016-12-17] MEDS ORDERED: Butalbital-Acet-Caffeine Tablet PO PRN (18:05)
[2016-12-17] MEDS ORDERED: Furosemide 10 mg/mL 10 mL Inj IVPUSH ONE (18:25)
[2016-12-17] MEDS ORDERED: Albuterol 2.5 mg/3 mL Inhalation Solution NEB PRN (18:25)
--- NOTE | 2016-12-17 19:00 | DRSVH ---
PROCEDURE: US RENAL SONOGRAM INDICATIONS: CKD TECHNIQUE: Real-time scanning was performed of the kidneys and bladder, with image documentation. COMPARISON: None. FINDINGS: Kidneys: Kidneys are normal in size. Right kidney measures 10.5 cm long; left kidney measures 10.3 cm long. Right renal cortical thickness is 1.2 cm; left renal cortical thickness is 1.3 cm. Renal c ortical echotexture is normal. No hydronephrosis or nephrolithiasis. No suspicious solid mass lesio ns. Multiple benign renal cysts bilaterally. Bladder: Pre-void bladder volume is 163 mL. Post-void residual is 82 mL. Pre-void images demonstra te no intraluminal masses or stones. On pre-void images, bilateral ureteral jets were not identified . (Of note, ureteral jets may not be detectable in up to 25% of cases due to insufficient difference s in specific gravity between ureteral and bladder urine). Miscellaneous: No free pelvic fluid. IMPRESSION: Normal renal ultrasound with pre-and postvoid bladder volumes as described above. Uretera l jets are not identified. No hydronephrosis. Dictated by: Nazario Lowe M.D. on 12/17/2016 at 18:51 Approved by: Nazaroi Lowe M.D. on 12/17/2016 at 18:53
[2016-12-17] MEDS ORDERED: DEXTROSE 5% IVPUSH ONE (19:45)
[2016-12-17] MEDS ORDERED: FUROSEMIDE IVPUSH ONE (19:45)
[2016-12-17] MEDS ORDERED: 0.9% Sodium Chloride 0 ML ONE (20:07)
[2016-12-17] MEDS ORDERED: 0.9% Sodium Chloride 50 ML ONE (20:07)
[2016-12-18] VITALS (9 sets, daily range): BP systolic 101–122; BP diastolic 51–73; PULSE 79–117; RESP 20–26; O2SAT 92–98
[2016-12-18] MEDS: Heparin 5,000 Unit/mL Inj SUBQ SCH ×3 (00:13→16:46)
[2016-12-18 03:24] LABS: BASOPHILS % (AUTO) 0.1 % (0-3); MONOCYTES % (AUTO) 6.2 % (4-12); Mean Corpuscular Hemoglobin 26.4 pg (27.0-35.0); Mean Corpuscular Volume 86.4 fL (81-100); NEUTROPHILS % (AUTO) 83.7 % (40-74); Platelet Count 126 bil/L (150-400)
[2016-12-18 04:20] LABS: Magnesium 1.7 mg/dL (1.6-2.6); Phosphorus 6.1 mg/dL (2.5-4.9)
[2016-12-18] MEDS: Pantoprazole 20 mg ER24 Tablet PO SCH ×2 (05:36→12:37)
--- NOTE | 2016-12-18 05:39 | NUR ---
Respiration/Telemetry/BG Oriented x3 but forgetful at times. [place]. She denies any pain. Dyspneic with exertion and at rest. Lasix 100 mg IV given. Bladder scan amount of 55 ml noted. Pt voided x1 with mixed stool of about 100 cc. No incontinence or further voids noted. Pt refused further bladder scanning this am. Audible wheezing noted. Crackles bilaterally. Intermittent coughing with some tenacious, white sputum. 02 up to 6L NC tonight. Currently, titrated down to 3L at this time with 02sat 94-96%. Telemetry ST HR 110s-120s. BG q1h checks ranging from 99-186. C/o nausea with small vomitus noted. Zofran given with effectiveness noted. Pt reports breathing a better at this time. Pt sitting up the recliner chair all night. Naps intermittently but unable to sleep comfortably due to orthopnea. Addendum: 12/18/16 at 0651 by AROLDO PAREDES RN No hypoglycemia episode. Pt noted be tired and sleepy this am. She awakens with stimuli but falls back to sleep after care. 02sat in mid 90s on 3L at this time.
--- NOTE | 2016-12-18 08:15 | NUR ---
MOC/Dialysis Received patient from [facility] for dialysis this morning. On Oxygen @ 4L via [place]. technology consultant informed of room transfer. Dialysis nurse to continue care. Addendum: 12/18/16 at 1230 by DEJAH DAVENPORT RN Patient completed dialysis treatment. Episodes of cramps noted during treatment relieved after a while. Transferred back to room, report given to floor nurse.
[2016-12-18] MEDS: cefTRIAXone Inj 1,000 MG in Dextrose 5% Minibag Plus 50 ML IV SCH (12:34)
[2016-12-18] MEDS: Azithromycin Inj 500 MG in Dextrose 5% w/Vial Mate 250 ML IV SCH (12:37)
--- NOTE | 2016-12-18 13:17 | NUR ---
return to room 1300 pt returns from dialysis, appears sleepy. Lungs sound unchanged. Denies nausea, refuses lunch.
--- NOTE | 2016-12-18 14:01 | NUR ---
Dialysis note 4 hr tx 2 hrs. PUF 2 hrs HD 1500ml net UF removed. Pt began severely cramping in the feet just as PUF was ending 100ml NS given and no UF for remainder of tx, Dr. Santiago notified VSS thru tx. See DTR for complete vitals. Pt sleepy and seemingly withdrawn thru tx. Nurse reports that family had mentioned pt not wanting skilled nursing HD This was not communicated to HD nurse by son or pt. Will notify Dr. Santiago of this. Report given and pt returned to floor stable.
--- NOTE | 2016-12-18 14:37 | PCM.PNMED ---
Subjective Date of Service December 18, 2016 Subjective Katharine Ochoa is a 76-year-old woman with past medical history significant for type II diabetes on oral agents and CTD stage IV was currently under treatment for acute kidney injury. Hospital day #4 Overnight: No acute events. Today: The patient states she is feeling better today and is tolerating her dialysis better than she had yesterday. She noted a severe leg cramp during dialysis but this resolved. Her nausea has improved. The remainder review of systems is negative except as noted above. Exam Vital Signs Vital Sign - Last Date Time Temp Pulse Resp B/P Pulse Ox O2 Delivery O2 Flow Rate FiO2 12/18/16 13:11 35.7 80 20 120/65 92 Nasal Cannula 2.00 Intake and Output 12/17/16 12/17/16 12/18/16 Cumulative From/Thru 15:00 23:00 07:00 12/15/16 17:47 - 12/18/16 06:03 Intake Total 962 ml 170 ml 3630 ml Output Total 1000 ml 435 ml 100 ml 2910 ml Balance -1000 ml 527 ml 70 ml 720 ml Intake Oral 300 ml 170 ml 1370 ml IV Total 662 ml 2260 ml Output Urine Total 85 ml 1160 ml Urine/Stool Mix 100 ml 100 ml Emesis 350 ml 650 ml Ultrafiltrate 1000 ml 1000 ml # Voids 1 1 # Bowel Movements 2 4 Exam Oriented 3. No distress. Fluent speech. Normal affec.. She is lethargic and slow to answer. She has upper and lower dentures. Normal skull. Normal nose and ears. Anicteric sclera, symmetric pupils Oropharynx is unremarkable, no facial droop. Neck is supple, normal thyroid. No adenopathy. Bilateral basilar crackles appreciated. Normal rate and effort. Tunnel catheter appreciated at the right chest without significant bleeding noted. Heart is regular without murmur gallop or rub. Abdomen soft, nondistended or tender. Extremities are normal for mild edema of both lower extremities with blistering of right leg. Myoclonus absent today on exam. Skin is free of rash, lesions. No petechiae or ecchymosis. Joints are grossly normal. Cranial nerves are grossly normal. Motor strength is normal in all extremities. Normal muscular tone. IVs and Medications Medications Reviewed: Medications were reviewed in detail Lab and Diagnostics Result Diagram: 12/18/16 0310 12/18/16 0835 X-Rays, CTs and MRIs X-RAY CHEST ONE VIEW, PORTABLE IMPRESSION: Patchy opacity in left lung base suspicious for atelectasis versus pneumonia. Dictated by: Taylor Van MD, PhD on 12/15/2016 at 12:24 Assessment & Plan Katharine Ochoa is a 76-year-old woman with past medical history significant for type II diabetes on oral agents and CTD stage IV was currently under treatment for acute kidney injury. Hospital day #4 ESRD, present on admission, ongoing. -Nephrology consulted -Patient with symptoms of uremia with significant fatigue, hyperkalemia, metabolic acidosis -Status post tunneled catheter placement and initiation of dialysis High anion gap metabolic acidosis likely secondary to renal failure, present on admission, active -Hemodialysis per nephrology. Community-acquired pneumonia, present on admission, -We will continue ceftriaxone and azithromycin. Antibiotics day #4 Diabetes mellitus type II, on oral agents, with recurrent episodes of hypoglycemia now resolved -Per review of patient's outpatient records she is on sulfonylurea for her diabetes which does have a renal metabolite Dilutional hyponatremia, present on admission, active -Anticipate improvement after hemodialysis. Normocytic anemia, likely multifactorial, likely secondary to iron deficiency anemia and chronic kidney disease, stable -Continue to monitor. -Consider IV iron infusion after patient's infection has resolved. Will defer to nephrology regarding EPO. Essential hypertension, present on admission -She has been normotensive and borderline hypotensive during her stay. Home blood pressure medications will be held off at this time. She is DNR/DNI. Disposition: Dissipate patient will be in the hospital for 1-2 more days as she is evaluated and treated for the above conditions. VTE Prophylaxis: Sub-Q Heparin (Unfractionated) Resuscitation Status: DNR/DNI:Do Not Resuscitate/Intubate Attending Statement I interviewed and examined the patient on rounds today. She seems symptomatically improved. I agree with the assessment and plan as stated above. Angélica Philip DO December 18, 2016 14:28 Dennis Moura MD December 18, 2016 15:53
--- NOTE | 2016-12-18 15:11 | PCM.PNNEPH ---
Subjective Date of Service December 18, 2016 Subjective Patient is feeling better following her first dialysis treatment. She still has some mild dyspnea with exertion but appears to be more alert. This morning her sodium is 138, potassium 4.7, chloride 90, bicarbonate 20, BUN and creatinine are 87 and 3.34 respectively. Her hemoglobin is 7.8, phosphorus 6.1 , and her blood pressure is doing well. Exam Vital Signs Vital Sign - Last Date Time Temp Pulse Resp B/P Pulse Ox O2 Delivery O2 Flow Rate FiO2 12/18/16 13:11 35.7 80 20 120/65 92 Nasal Cannula 2.00 Intake and Output 12/17/16 12/17/16 12/18/16 Cumulative From/Thru 15:00 23:00 07:00 12/15/16 17:47 - 12/18/16 06:03 Intake Total 962 ml 170 ml 3630 ml Output Total 1000 ml 435 ml 100 ml 2910 ml Balance -1000 ml 527 ml 70 ml 720 ml Intake Oral 300 ml 170 ml 1370 ml IV Total 662 ml 2260 ml Output Urine Total 85 ml 1160 ml Urine/Stool Mix 100 ml 100 ml Emesis 350 ml 650 ml Ultrafiltrate 1000 ml 1000 ml # Voids 1 1 # Bowel Movements 2 4 Exam HEENT examination is remarkable for pale sclera. Neck is supple without adenopathy, thyromegaly, or jugular venous distention. Lungs are clear though somewhat diminished. Heart was regular with a soft systolic murmur. Abdomen is soft without any tenderness or rebound guarding masses or hepatosplenomegaly. Extremities show any evidence of any clubbing, cyanosis, or edema. Lab and Diagnostics Result Diagram: 12/18/16 0310 12/18/16 0835 X-Rays, CTs and MRIs X-RAY CHEST ONE VIEW, PORTABLE IMPRESSION: Patchy opacity in left lung base suspicious for atelectasis versus pneumonia. Dictated by: Taylor Van MD, PhD on 12/15/2016 at 12:24 Plan Impression Impression #1 end-stage renal disease dialysis dependent #2 symptomatic uremia #3 hypertension with hypertensive heart disease and hypertensive nephrosclerosis Recommendations #1 history dialyzed today for 2 hours [place] ultrafiltration and 2 hours of hemodialysis on a max dialyzer, 3 potassium bath, no heparin, and will try to take a total of 2-3 L of fluid off. I will also start her on Renvela 800 mg with each meal and to call vitamin D levels. Chay Santiago DO December 18, 2016 15:11
--- NOTE | 2016-12-18 15:20 | NUR ---
Social Work Note: Continued Discharge Planning Data& Assessment: ELOY received MD to help coordinate outpt chronic dialysis and discharge planning. ELOY met with pt at bedside and provided dialysis center list for preferences. [facility] is the closest dialysis center to pt home and this is pt preference. ELOY called and spoke with Sandy with [facility] who plans to fax the list of clinicals and paperwork she needs to have pt established with that kidney center. Pt had tunnel cath placed. Pt normally does not require DME or oxygen at baseline and is now requiring oxygen and ambulation assistance. PT evaluation pending. SW to continue to follow for further PT and MD orders for discharge planning. Pt denies any other needs at this time. SW to continue to follow. Plan: Anticipated discharge home via POV with home health and technician terminal and repeater kidney dialysis at [facility] in [facility] vs. SNF. SW to continue to follow for further PT and MD orders for discharge planning. ELOY to obtain requirement list from Sandy via fax to gather clinicals to help establish pt at the preferred kidney center. Pt denies any other needs at this time. ELOY to continue to follow. MARYCRUZ [place]
[2016-12-19] VITALS (9 sets, daily range): BP systolic 103–134; BP diastolic 63–81; PULSE 94–122; RESP 20–22; O2SAT 91–96
[2016-12-19] MEDS: Heparin 5,000 Unit/mL Inj SUBQ SCH ×3 (00:29→17:03)
--- NOTE | 2016-12-19 02:01 | NUR ---
P) Respiratory Pt. alert, lungs with expiratory wheezes scattered throughout, SPO2 dropped to low 80's on 2L N/C, increased O2 to 5L and added humidification to maintain SPO2 in mid to upper 90's. Inspiratory crackles continue in bases. I) Enc. pulmonary hygiene, meds per 's orders, assisting pt. to turn and stand and use BSC. E) Currently resting quietly with eyes closed.
--- NOTE | 2016-12-19 06:31 | NUR ---
P) Skin issue Pt. up to commode this morning, she has 2 large blisters on the back of her R calf, one of which has thr skin peeled back. Pt. was not aware of them and does not know when they appeared. I) Vaseline adaptic applied, covered with gauze and secured with a non-adhesive dressing. wound care referral done. E) Resting quietly, denies pain.
[2016-12-19] MEDS: Azithromycin Inj 500 MG in Dextrose 5% w/Vial Mate 250 ML IV SCH (08:30)
--- NOTE | 2016-12-19 11:12 | NUR ---
Social Work: Readiness for Discharge D: Pt discussed in am rounds. MD order received to arrange for residential/rehab for the patient as she has a decreased level of mobility. SITE LEASING AGENT met with patient at bedside to discuss discharge planning and recommendation for skilled rehab/nursing. SNF CHOICE LIST PROVIDED to patient. Pt lives in [place] and her preference is to remain as close to home as possible. Her primary [facility] as a backup [facility]. [facility] will provide referrals. Pt is Madhavi Meddasatish and will require auth. PPW on chart PASSR Completed Pt will require hemodialysis at discharge. SITE LEASING AGENT received necessary documentation requirements from [facility] and is working with RN and business unit leader to obtain necessary clinicals. SITE LEASING AGENT will fax these when necessary documentation is obtained. Pt requires orders from nephrology for outpatient dialysis. Pt currently has a temporary tunnel cath. A: Pt who will require skilled rehab for continued strengthening and mobility improvement. P: Anticipate pt to require skilled rehab pending acceptance and ongoing dialysis at discharge. SITE LEASING AGENT to continue to assist with discharge planning. MARYCRUZ [place]
[2016-12-19] MEDS: cefTRIAXone Inj 1,000 MG in Dextrose 5% Minibag Plus 50 ML IV SCH (11:45)
--- NOTE | 2016-12-19 11:50 | NUR ---
Faxed referral to [facility] and [facility] per LABORATORY PHLEBOTOMIST. Addendum: 12/19/16 at 1524 by DERRICK KHAN CM [facility] and [facility] can accept and with to follow. They do not provide dialysis transport so this would either be private pay or family will need to be able to transport. Updated LABORATORY PHLEBOTOMIST
--- NOTE | 2016-12-19 12:04 | PCM.PNMED ---
Subjective Date of Service December 19, 2016 Subjective Katharine Ochoa is a 76-year-old woman with past medical history significant for type II diabetes on oral agents and CTD stage IV was currently under treatment for acute kidney injury. Hospital day #5 Overnight: No acute events. Today: The patient states she is feeling better today. Her breathing is improved. She denies any cough, fevers, chills, or worsening shortness of breath. She still has some nausea and loss of appetite. The remainder review of systems is negative except as noted above. Exam Vital Signs Vital Sign - Last Date Time Temp Pulse Resp B/P Pulse Ox O2 Delivery O2 Flow Rate FiO2 12/19/16 11:15 Supplement Oxygen 12/19/16 07:48 36.0 117 20 114/68 95 5.00 Intake and Output 12/18/16 12/18/16 12/19/16 Cumulative From/Thru 15:00 23:00 07:00 12/15/16 17:47 - 12/19/16 04:09 Intake Total 850 ml 110 ml 4590 ml Output Total 1500 ml 100 ml 4510 ml Balance -1500 ml 850 ml 10 ml 80 ml Intake Oral 500 ml 100 ml 1970 ml IV Total 350 ml 10 ml 2620 ml Output Urine Total 100 ml 1260 ml Urine/Stool Mix 100 ml Emesis 650 ml Ultrafiltrate 1500 ml 2500 ml # Voids 2 3 # Bowel Movements 2 6 Exam Oriented 3. No distress. Fluent speech. Normal affect. She is lethargic and slow to answer but improved from yesterday. She has upper and lower dentures. Normal skull. Normal nose and ears. Anicteric sclera, symmetric pupils Oropharynx is unremarkable, no facial droop. Neck is supple, normal thyroid. No adenopathy. Bilateral basilar crackles appreciated. Normal rate and effort. Tunnel catheter appreciated at the right chest without significant bleeding noted. Heart is regular without murmur gallop or rub. Abdomen soft, nondistended or tender. Extremities are normal for mild edema of both lower extremities with dressing on wound on right leg. Myoclonus absent today on exam. Skin is free of rash, lesions. No petechiae or ecchymosis. Joints are grossly normal. Cranial nerves are grossly normal. Motor strength is normal in all extremities. Normal muscular tone. IVs and Medications Medications Reviewed: Medications were reviewed in detail Lab and Diagnostics Result Diagram: 12/18/16 0310 12/19/16 0324 X-Rays, CTs and MRIs X-RAY CHEST ONE VIEW, PORTABLE IMPRESSION: Patchy opacity in left lung base suspicious for atelectasis versus pneumonia. Dictated by: Taylor Van MD, PhD on 12/15/2016 at 12:24 Assessment & Plan Katharine Ochoa is a 76-year-old woman with past medical history significant for type II diabetes on oral agents and CTD stage IV was currently under treatment for acute kidney injury. Hospital day #5 ESRD, present on admission, ongoing. -Nephrology consulted -Patient with symptoms of uremia with significant fatigue, hyperkalemia, metabolic acidosis that have now all improved -Status post tunneled catheter placement and initiation of dialysis x2 days High anion gap metabolic acidosis likely secondary to renal failure, present on admission, improving -Hemodialysis per nephrology. Community-acquired pneumonia, present on admission, active, stable -We will continue ceftriaxone and azithromycin. Antibiotics day #5 Diabetes mellitus type II, on oral agents, with recurrent episodes of hypoglycemia now resolved -Per review of patient's outpatient records she is on sulfonylurea for her diabetes which does have a renal metabolite -Hold off oral agents for now Dilutional hyponatremia, present on admission, improved Normocytic anemia, likely multifactorial, likely secondary to iron deficiency anemia and chronic kidney disease, stable -Continue to monitor. -Consider IV iron infusion after patient's infection has resolved. Will defer to nephrology regarding EPO. Essential hypertension, present on admission -She has been normotensive and borderline hypotensive during her stay. Home blood pressure medications will be held off at this time. She is DNR/DNI. Disposition: Anticipate patient will be in the hospital for 1-2 more days as she is evaluated and treated for the above conditions. VTE Prophylaxis: Sub-Q Heparin (Unfractionated) Resuscitation Status: DNR/DNI:Do Not Resuscitate/Intubate Time spent 45 minutes Attending Statement I interviewed and examined the patient on rounds today. Planned discharge delayed due to persistent bleeding from hemodialysis catheter site. I agree with the assessment and plan as stated above. Angélica Philip DO December 19, 2016 11:57 Dennis Moura MD December 21, 2016 07:18
[2016-12-19] MEDS ORDERED: IRON SUCROSE IV ONE (12:30)
--- NOTE | 2016-12-19 13:23 | NUR ---
NUTRITION ASSESSMENT: ASSESS: Pt is a 76yo F admitted for renal failure. Pt is a new dialysis pt. She is being followed by nephrology. She is on a renal diet with fair PO intake ranging from 0-100% of meals. PO avg is 35% x 4 days. PMHX: DM, CKD, HTN LABS: Reviewed. Na 131, Cl 93, Bun 60, window systems administrator 2.98, Glu 116, Ca 7.5, Alb 3.1 MEDS: Reviewed. Garland Hussein GI: BMx2 12/19 SKIN: 2 large blisters on the back of her R calf, wound consult pending CURRENT WTS: 102.9kg, BMI 36.6kg/m2, admit wt 103.1kg, IBW: 59.1kg DIET: Renal, PO 0-100% EST. NEEDS: Kcals: 2265-2575kcal/day (22-25kcal/kg) Pro: 70-105g/day (1.2-1.8g/kg IBW) Fluids: 1000ml/day NUTRITION DIAGNOSIS: 1.) Increased nutrient needs related to ESRD as evidence by new dialysis start NUTRITION INTERVENTION: 1.) Will continue to send Nepro on L tray to help increase kcal/pro intake (pt is on 1000ml fluid restriction so will keep supplement to only 1/day= 237ml) MONITOR / EVAL: PO, wt, GI, labs, POC, nutrition status. Will continue to monitor per moderate nutrition risk guidelines.
--- NOTE | 2016-12-19 13:24 | PCM.PNNEPH ---
Subjective Date of Service December 19, 2016 Subjective She continues to do well. At this point I have called in to the nephrology group at the [facility] to see about assuming care as an outpatient basis for Mrs. Ochoa and for outpatient dialysis. No new complaints and denies any headache, chest pain, or shortness of breath. This morning her sodium is 131, potassium 4.9, chloride 93, bicarbonate 24, BUN and creatinine were 60 and 2.98. Indications for 11 and her transferrin saturation was 15%. Exam Vital Signs Vital Sign - Last Date Time Temp Pulse Resp B/P Pulse Ox O2 Delivery O2 Flow Rate FiO2 12/19/16 11:15 Supplement Oxygen 12/19/16 07:48 36.0 117 20 114/68 95 5.00 Intake and Output 12/18/16 12/18/16 12/19/16 Cumulative From/Thru 15:00 23:00 07:00 12/15/16 17:47 - 12/19/16 04:09 Intake Total 850 ml 110 ml 4590 ml Output Total 1500 ml 100 ml 4510 ml Balance -1500 ml 850 ml 10 ml 80 ml Intake Oral 500 ml 100 ml 1970 ml IV Total 350 ml 10 ml 2620 ml Output Urine Total 100 ml 1260 ml Urine/Stool Mix 100 ml Emesis 650 ml Ultrafiltrate 1500 ml 2500 ml # Voids 2 3 # Bowel Movements 2 6 Exam HEENT examination is remarkable for pale sclera. Neck supple without adenopathy thyromegaly or jugular venous distention. Lungs are clear to auscultation. Heart is regular rhythm with a soft systolic murmur. Abdomen is soft without any tenderness rebound guarding masses or hepatosplenomegaly. Extremities are 20 evidence of any clubbing, cyanosis, or edema. Skin turgor is good. Lab and Diagnostics Result Diagram: 12/18/16 0310 12/19/16 0324 X-Rays, CTs and MRIs X-RAY CHEST ONE VIEW, PORTABLE IMPRESSION: Patchy opacity in left lung base suspicious for atelectasis versus pneumonia. Dictated by: Taylor Van MD, PhD on 12/15/2016 at 12:24 Plan Impression Impression #1 end-stage renal disease dialysis dependent #2 symptomatic uremia which is resolving #3 hypertension with hypertensive heart disease hypertensive nephrosclerosis #4 anemia with iron deficiency secondary to chronic kidney disease. Recommendations #1 was deferred treatment on her today for 3 hours, max dialyzer , 3 potassium bath, 1200 of heparin and 500 now and take one Zoloft. We will also give her milligrams of ferrous gluconate. We will make arrangements for her dialysis on Friday and once I discuss the case with her new computer systems auditor we can see about getting her discharge from running in the next few days. Chay Santiago DO December 19, 2016 13:24
--- NOTE | 2016-12-19 13:50 | NUR ---
Wounds/Dialysis... Pt has been up in the chair since early am and is kelsie activity well. Is slow in transferring from bed to chair but requiring only 1 assist. Was seen by county judge and blistered area on back of R leg lopez was redressed. Pt taken to [facility] unit for dialysis.
--- NOTE | 2016-12-19 16:30 | NUR ---
Wound Note Wound evaluation orders received, patient sen at bedside. 76 yo female admitted with renal failure presents with stasis type symptoms at the lower legs bilaterally. Right posterior leg has an intact blister measuring 4 cm x 3 cm and a broken blister distal to it that is 4 cm x 3 cm, cleaned with saline and then applied xeroform, wrapped with kerlix and coban. Will change dressing on this patient tomorrow.
--- NOTE | 2016-12-19 16:45 | NUR ---
Dialysis note: 3 hours tx 1000 ml net UF Right catheter, dsg changed, no s/s of infection noted Pls see DTR for VS details Qb 400 Heparin given O2 @ 2L via NC on Venofer 100 mg IV given Tolerated tx, slept at intervals Catheter flushed, heparin dwelled and secured Stable condition at end of tx Report given to Coby FREEMAN
--- NOTE | 2016-12-19 17:08 | NUR ---
pt on MOC for DIALYSIS from aprox 1330 until 1650 bedside report returned to primary nurse CARO telecommunications engineer surfacing technician informed of return to unit see forest landscape ecology professor note, intervention, and/or graphic flow for treatment details
[2016-12-20] VITALS (12 sets, daily range): BP systolic 111–133; BP diastolic 65–85; PULSE 95–142; RESP 16–26; O2SAT 90–98
[2016-12-20] MEDS: Heparin 5,000 Unit/mL Inj SUBQ SCH ×4 (00:30→20:21)
[2016-12-20] MEDS ORDERED: Gelatin Sponge 12-7 MM ONE (01:24)
--- NOTE | 2016-12-20 01:56 | NUR ---
Telemetry/Tunneled Catheter Telemetry has been discontinued. Heart rate noted irregular with heart rate 100s-140s on the monitor during vital checks. EKG done with noted aflutter/fib. Pt back on Telemetry at this time. Telemetry HR in low 100s-130s non-sustained at this time. Tunneled catheter noted to be oozing/bleeding moderate amount of bloody drainage. Reinforced dressing with pressure dressings several times. Dressing continue to ooze with moderate amount. 5lb sandbag applied with gauze and Kerlix at this time. Dialysis nurse paged several times without any callback at this time. Md aware of bleeding and Telemetry status. New orders noted. Addendum: 12/20/16 at 0413 by AROLDO PAREDES RN Tunneled catheter dressing CDI at this time. Heparin dose sq held last night due to oozing/bleeding. Addendum: 12/20/16 at 0600 by AROLDO PAREDES RN Afib/aflutter heart rate up to 130s-140s especially during activity. HR mostly in low 100s us804g. aware. Desat to high 80s on RA. Pt voided several times 200 cc and x1 100 cc mixed bm/urine. Pt had several loose bm tonight. Addendum: 12/20/16 at 0726 by AROLDO PAREDES RN Aixa removed this am with old blood. Bedside report given to Ángela FREEMAN.
[2016-12-20 02:23] LABS: BASOPHILS % (AUTO) 0.1 % (0-3); EOSINOPHILS % (AUTO) 1.3 % (0-5); MONOCYTES % (AUTO) 9.7 % (4-12); Mean Corpuscular Hemoglobin 26.6 pg (27.0-35.0); Mean Corpuscular Volume 88.2 fL (81-100); NEUTROPHILS % (AUTO) 76.7 % (40-74); Platelet Count 129 bil/L (150-400)
[2016-12-20] MEDS: Pantoprazole 20 mg ER24 Tablet PO SCH (05:36)
--- NOTE | 2016-12-20 10:07 | NUR ---
Meagan disaster recovery coordinator from [facility] has obtained authorization for patient to transfer to their facility. Called and let message for Sandy disaster recovery coordinator for [facility] [phone], let her know I was looking for updated on chair for this patient and progress of patient as of this morning. Updated POPCORN CANDY MAKER Addendum: 12/20/16 at 1050 by DERRICK KHAN CM Spoke with Sandy disaster recovery coordinator at [facility]
--- NOTE | 2016-12-20 10:41 | NUR ---
Social Work: Readiness for Discharge D: Pt discussed in am rounds. Pt is anticipated to be ready for discharge today pending pt's dialysis at [facility] can be finalized. Sandy at [facility] states that the pt has been setup with an outpatient neurologist, Dr. Barron, who is helping to facilitate pt's OP Dialysis. Pt does not yet have a chair but will update PROTECTIVE SIGNAL INSTALLER HELPER and BAIL ATTACHER when they get financial authorization from the patient's insurance. Inpatient Clinicals faxed to [facility]. Pt has been accepted at [facility] with Dr. Saenz to follow. The facility does not coordinate transportation. PROTECTIVE SIGNAL INSTALLER HELPER met with the patient at bedside to discuss plans for transportation to and from dialysis. Pt states that she has four sons who will be helping her with transportation. Pt states that she will be discussing this with her son. Pt states that she has the ability to pay privately if her sons are not able to provide transport. Pt provided verbal consent for PROTECTIVE SIGNAL INSTALLER HELPER to speak to her son about transportation. t/c to Jj Ochoa; PROTECTIVE SIGNAL INSTALLER HELPER informed him of family responsibility to provide transport. He states that he can transport her however works in [facility] and will need to know what the pt's dialysis schedule will be prior to discharge. A: Pt who will require skilled rehab for continued strengthening and mobility training. P: Anticipate pt to discharge to [facility] either with family to transport or [facility] and outpatient Dialysis at [facility]. PROTECTIVE SIGNAL INSTALLER HELPER to follow up with pt's dialysis schedule and insurance auth. MARYCRUZ [place] Addendum: 12/20/16 at 1252 by GIANNA MCKEON PROTECTIVE SIGNAL INSTALLER HELPER met with patient and son, Madhav, at bedside. They have decided that as a family, it does not make sense for the patient to do dialysis in [place] due to transportation issues. The pt's son, Madhav lives in [place] and Jj works in [employer]. It would be more efficient for them to have the patient placed in skilled rehab in [place] and to complete dialysis at [facility]. Their preference is for [facility] or [facility]. Pt agrees with this plan as well. PROTECTIVE SIGNAL INSTALLER HELPER discussed this plan with the MD who has spoken with nephrology about referring the pt to [facility]. t/c to Bhavana at the [facility] Center. She states that they will work to get pt on caseload however pt will likely need to complete dialysis at [facility] on Friday and possible early next week as they may not have a chair available immediately. They are working to obtain orders from nephrology for outpatient dialysis. [facility] and [facility] were both referred by PROTECTIVE SIGNAL INSTALLER HELPER. [facility] can accept with Dr. Ashley. Luba Devlin at [facility] is working on transferring the insurance authorization to their facility. She will update PROTECTIVE SIGNAL INSTALLER HELPER when she has final authorization. Addendum: 12/20/16 at 1703 by GIANNA BECERRA SS [facility] has received insurance authorization and can take the patient when ready. updated. Pt will be held overnight as she has now bleeding from her cath site. Anicipate d/c for Friday after dialysis at [facility]. Outpatient Dialysis for [facility] have still not been provided. Pt will likely need dialysis at [facility] on Friday as well due to high intake volumes at the [facility], as reported by Bhavana at [facility]. is aware and will continue to work on this with nephrology.
--- NOTE | 2016-12-20 10:49 | PCM.PNNEPH ---
Subjective Date of Service December 20, 2016 Subjective Patient is somewhat somnolent today but otherwise is doing well. She continues to breathe well and denies any headache, chest pain, or shortness of breath. Her appetite is good. Her most recent lab obtained this morning showed a sodium of 138, potassium 4.1, chloride 98, bicarbonate 28, BUN and creatinine were 29 and 1.88 hemoglobin 7.7. This is also off following 3 days of intense dialysis. Exam Vital Signs Vital Sign - Last Date Time Temp Pulse Resp B/P Pulse Ox O2 Delivery O2 Flow Rate FiO2 12/20/16 08:00 36.6 97 20 133/85 96 OxyMask 6.00 Intake and Output 12/19/16 12/19/16 12/20/16 Cumulative From/Thru 15:00 23:00 07:00 12/15/16 17:47 - 12/20/16 05:49 Intake Total 755 ml 120 ml 5465 ml Output Total 1000 ml 0 ml 700 ml 6210 ml Balance -1000 ml 755 ml -580 ml -745 ml Intake Oral 400 ml 120 ml 2490 ml IV Total 355 ml 2975 ml Output Urine Total 0 ml 700 ml 1960 ml Urine/Stool Mix 100 ml Emesis 650 ml Ultrafiltrate 1000 ml 3500 ml # Voids 3 # Bowel Movements 2 8 Exam HEENT examination is remarkable for pale sclera. Neck is supple without adenopathy, thyromegaly, or jugular venous distention. Lungs were clear to auscultation. Heart is regular and rhythmical with a soft systolic murmur. Abdomen is soft without any tenderness rebound guarding masses or hepatosplenomegaly. Extremities do not show any evidence of any clubbing, cyanosis, or edema. Skin turgor is good. Lab and Diagnostics Result Diagram: 12/20/1620912/20/16 021 X-Rays, CTs and MRIs X-RAY CHEST ONE VIEW, PORTABLE IMPRESSION: Patchy opacity in left lung base suspicious for atelectasis versus pneumonia. Dictated by: Taylor Van MD, PhD on 12/15/2016 at 12:24 Plan Impression Impression #1 end-stage renal disease #2 symptomatic uremia which is resolved # 3 hypertension with hypertensive heart disease and hypertensive nephrosclerosis which is improved #4 diabetic renal disease Recommendations #1 recommendations for her dialysis in the morning. Chay Santiago DO December 20, 2016 10:48
--- NOTE | 2016-12-20 10:50 | NUR ---
OUTPATIENT DIALYSIS UPDATE: Spoke with Sandy financial coordinator at [facility], she received all orders from at [facility] and this will be the employer relations representative to follow. Faxed all paperwork to [phone], once Sandy receives this she will forward to finance and work on chair for this patient. At this time she is unsure how soon she could get patient in, she will follow up with me once finance has reviewed patient. Currently she will only have [place],Sat spot to start this patient. Updated GLOST TILE SHADER Addendum: 12/20/16 at 1306 by DERRICK KHAN CM Called and let Sandy know patient would be staying up here and is able to open with [facility].
[2016-12-20] MEDS: cefTRIAXone Inj 1,000 MG in Dextrose 5% Minibag Plus 50 ML IV SCH (11:06)
[2016-12-20] MEDS ORDERED: ZYL100 PO (12:06)
[2016-12-20] MEDS ORDERED: SEVE800T7 PO (12:06)
--- NOTE | 2016-12-20 12:14 | PCM.DIMED ---
Discharge Instructions Date of Service December 20, 2016 Dates of Hospitalization December 15, 2016 at 11:03 Discharge Diagnosis Discharge Diagnosis Chronic kidney disease stage V; acute oliguric renal failure; hypoglycemia due to sulfonylurea medication; hypertension; type II diabetes mellitus; hyponatremia Medication Instructions Additional med instructions Your diabetes medicine glimepiride has been discontinued, you do not need it at this time. Your high blood pressure medicine benazepril has been discontinued, as your blood pressure is now well controlled on dialysis. You may continue to take your blood pressure and heart medicine called carvedilol. Your allopurinol dose has been reduced now that you are on dialysis. Diet Discharge Diet: Renal Diet (follow guidance on phosphorus restriction) Activity Discharge Activity: Other (as per physical therapy staff at [facility]) Call your provider Call your provider for: Shortness of breath Patient Instructions Patient Instructions You will have dialysis on 12/21 and on a schedule to be determined by the dialysis unit after that. Follow-up Provider: Chay Santiago DO Follow-up with PCP in: Other (as per guidance from the dialysis center) Provider: Chavez Montoya MD Follow-up in: Other (after discharge from [facility] for a posthospitalization follow-up appointment to check your blood pressure and diabetes, since medicines have been changed.) Mid-level Provider (F9): Ana Ashley MD Follow-up with Mid-level in: Other (at [facility]) Dennis Moura MD December 20, 2016 12:14
--- NOTE | 2016-12-20 12:27 | PCM.DC.MED ---
Discharge Summary Date of Service December 20, 2016 Dates of Hospitalization Date of Hospital Admission December 15, 2016 at 11:03 Date of Discharge: December 20, 2016 Providers: Admitting Physician: Sonu Currie MD Primary Care Physician: Chavez Montoya MD Attending Physician: Sonu Currie MD Diagnosis at Time of Discharge Diagnosis at Time of Discharge Chronic kidney disease stage V; acute oliguric renal failure; hypoglycemia due to sulfonylurea medication; hypertension; type II diabetes mellitus; hyponatremia Consultations Nephrology, Dr. Chay Santiago, Dr. Avery Procedures XRay, CTs & MRIs X-RAY CHEST ONE VIEW, PORTABLE IMPRESSION: Patchy opacity in left lung base suspicious for atelectasis versus pneumonia. Dictated by: Taylor Van MD, PhD on 12/15/2016 at 12:24 Cardiac Echo Impression Echocardiogram Report Name: RAYSHAWN VELIZ Study Date: 12/16/2016 Height Interpretation Summary The left ventricular cavity is small. There is mild concentric left ventricular hypertrophy. Left ventricular systolic function is low normal. The ejection fraction is estimated to be 50-55%. The right ventricle is mild to moderately dilated. Right ventricular systolic function is mildly reduced. Flattened septum is consistent with RV pressure/volume overload. The right ventricular systolic pressure is estimated at 34 mmHg assuming a right atrial pressure of 15 mm Hg. The left atrial size is normal. The right atrium is mildly dilated. There is moderate tricuspid regurgitation. There is no other significant valvular heart disease. The aortic root is normal size. There is a small loculated pericardial effusion located inferiorly. There is a moderate left-sided pleural effusion. There are no echocardiographic indications of cardiac tamponade. . Brief History This is a 76-year-old female who was been admitted to [facility] since Friday. They are she has been noted to have progressive acute on chronic renal failure. I believe she has chronic kidney disease stage 3-4. The patient notes that she was diagnosed with possible pneumonia and has been on antibiotics. She has had minimal cough and no dyspnea. No fevers or chills. She has had a slow progressive fatigue. She denies any prominent pruritus. The transfer was for reasons of probable dialysis. Given her progressive acute on chronic renal failure. The patient denies any leg edema above and beyond her chronic edema for which she wears compression stockings. No orthopnea. She denies any confusion but is extremely lethargic. They had talked her about the possibility of kidney treatments to improve her overall symptoms. She is agreeable to this. Resuscitation efforts were also discussed and she is quite clear that she wants to be a DNR/DNI. Hospital Course #1 ESRD, present on admission, ongoing. Marked symptomatic improvement - Subclavian hemodialysis catheter placed; she will experience some uremic bruising for several days which stopped prior to discharge - Dialysis initiated; 4 rounds inpatient prior to discharge - She will continue with hemodialysis in [place]; requires hemodialysis on 12/24/16 at [facility] - sevelamer 800 tid - allopurinol dose adjusted to 100 mg QD - PTH is 411; vit D levels pending - to be followed by solar crew member #2 Acute on chronic respiratory failure with hypoxia. She had mild bronchospasm felt to be due to fluid overload, responsive to dialysis. She may also have FREDIS and obesity related restrictive lung disease. - Recommend Oxygen 2 L as needed #3 Chronic atrial fibrillation, with acute rapid ventricular response. - Anticoagulation has been declined in the past, per patient history - Heart rate periodically increased to 110-130 - Beta sahra dosage was increased with good rate control prior to discharge. #4 Diabetes mellitus type II, on oral agents, with recurrent episodes of hypoglycemia now resolved. - Blood glucose remained well controlled on no oral agents while on hospital diet - Continue her current outpatient dosing of sitagliptin #5 Acute severe hypoglycemia, present on admission. She presented with hypoglycemia in range of 40-50. Associated with encephalopathy. This persisted for 4 days after her last dose of glimepiride. Subsequently resolved. - Discontinued glimepiride - Resolved #6 Community-acquired pneumonia, present on admission, active, stable. Initial symptoms of dyspnea with ambiguous chest x-ray resulted in 5 day course of antibiotics. Few clinical signs or symptoms of pneumonia. She benefited from 2-3L oxygen supplementation while inpatient. -Completed 5 days ceftriaxone plus azithromycin #7 Hyponatremia, present on admission, resolved. Presenting serum sodium 125, associated with encephalopathy. Likely related to acute oliguric renal failure - Serum sodium 138 prior to discharge #8 Normocytic anemia, likely multifactorial, likely secondary to iron deficiency anemia and chronic kidney disease, stable -Continue to monitor. -Will defer to nephrology regarding EPO. #9 Essential hypertension, present on admission. Systolic blood pressure 111- 133 prior to discharge on no antihypertensives. - Discontinue OSMEL inhibitor. -Increased dose of previously prescribed carvedilol, with good control of hypertension and A. 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 Patient had generalized weakness required assistance with ambulation and ADLs. - Discharge to SNF for physical therapy and rehabilitation She is DNR/DNI. Exam Vital Signs (Last) Date Time Temp Pulse Resp B/P Pulse Ox O2 Delivery O2 Flow Rate FiO2 12/20/16 08:00 36.6 97 20 133/85 96 OxyMask 6.00 Exam General: Obese elderly woman, no acute distress HEENT: sclerae anicteric, oral mucosa moist Neck: no apparent JVD Chest: Generally clear to auscultation, basilar crackles, no wheezing Cardiac: S1S2, no audible murmur Abdomen: BS normal, non-tender Extremities: 1+ edema Neuro: Alert with mild cognitive impairment, cranial nerves symmetric, truncal weakness difficult sitting up Test 12/15/16 12:05 12/16/16 02:53 12/16/16 06:00 12/17/16 16:46 Hemoglobin A1c 6.9% (4.8-5.6) Hepatitis B Core Total Antibody Negative (Negative) Urine Color Yellow (YELLOW) Urine Appearance Clear (CLEAR,HAZY) Urine pH 5.0 (5.0-8.0) Urine Specific [place] 1.013 (1.003-1.035) Urine Protein Negativemg/dL (NEG,TRACE) Urine Glucose (UA) Negativemg/dL (NEGATIVE) Urine Ketones Negativemg/dL (NEGATIVE) Urine Occult Blood Negative (NEGATIVE) Urine Nitrite Negative (NEGATIVE) Urine Bilirubin Negative (NEGATIVE) Urine Urobilinogen Normalmg/dL (NORMAL) Urine Leukocyte Esterase Negative (NEGATIVE) Urine RBC 0-2/hpf (0-2) Urine WBC 0-5/hpf (0-5) Urine Epithelial Cells Many/hpf (NONE-MOD) Urine Crystals None seen (NONE SEEN) Urine Bacteria Few/hpf (NONE-FEW) Urine Hyaline Casts None/lpf (NONE) Urine Granular Casts None seen (NONE SEEN) Urine Waxy Casts None seen (NONE SEEN) Urine Red Blood Cell Casts None seen (NONE SEEN) Urine White Blood Cell Casts None seen (NONE SEEN) Urine Mucus None seen (None Seen) Urine Trichomonas None seen (NONE SEEN) Urine Yeast None (NONE SEEN) Urine Culture Reflexed Not indicated Urine Random Creatinine 51mg/dL (15-278) Urine Random Total Protein 9mg/dL (0-15) Urine Total Protein 9.8mg/dL (Not Estab.) Urine Albumin 29.8% (.) Urine Xzpyd-6-Arsrdjct 3.6% (.) Urine Spuje-0-Sghbiumqt 9.5% (.) Urine Beta Globulin 19.1% (.) Urine Gamma Globulin 37.9% (.) Urine Protein Electrophoresis Note Comment (.) Urine Monoclonal Protein % Not observed% (Not Observed) Prothrombin Time 10.7sec (8.1-12.5) Prothromb Time International Ratio 1.00ratio Activated Partial Thromboplast Time 37.0sec (22.8-33.0) Uric Acid 3.9mg/dL (2.6-7.2) Ferritin 366ng/mL (13-150) Vitamin B12 Level 1156pg/mL (211-946) Folate 5.9ng/mL (>3.0) Hepatitis B Surface Antigen Negative (Negative) Hepatitis B Surface Antibody Non reactive (.) HIV (1&2) Ag and Ab, 4th Generation Non reactive (Non Reactive) Test 12/18/16 03:10 12/19/16 03:24 12/20/16 02:10 Phosphorus Level 6.1mg/dL (2.5-4.9) Magnesium Level 1.7mg/dL (1.6-2.6) Iron Level 29ug/dL (35-150) Total Iron Binding Capacity 197ug/dL (250-450) Percent Iron Saturation 15%sat (15-50) Unsaturated Iron Binding 168ug/dL Parathyroid Hormone (Intact) 411pg/mL (15-65) Prealbumin 19mg/dL (20-40) White Blood Count 8.0th/mm3 (3.8-10.1) Red Blood Count 2.89mil/mm3 (3.90-5.20) Hemoglobin 7.7g/dL (12.0-15.6) Hematocrit 25.5% (35.0-46.0) Mean Corpuscular Volume 88.2fL (81-100) Mean Corpuscular Hemoglobin 26.6pg (27.0-35.0) Mean Corpuscular Hemoglobin Concent 30.2% (32.0-37.0) Red Cell Distribution Width 19.0% (12.3-15.4) Platelet Count 129bil/L (150-400) Neutrophils (%) (Auto) 76.7% (40-74) Lymphocytes (%) (Auto) 10.2% (14-46) Monocytes (%) (Auto) 9.7% (4-12) Eosinophils (%) (Auto) 1.3% (0-5) Basophils (%) (Auto) 0.1% (0-3) Sodium Level 138mEq/L (134-144) Potassium Level 4.1mEq/L (3.5-5.2) Chloride Level 98mEq/L (97-108) Carbon Dioxide Level 28mmol/L (18-29) Blood Urea Nitrogen 29mg/dL (8-27) Creatinine 1.88mg/dL (0.57-1.00) Estimat Glomerular Filtration Rate 37mL/min (>59) Glucose Level 117mg/dL (60-99) Calcium Level 8.2mg/dL (8.5-10.1) Total Bilirubin 0.2mg/dL (0.0-1.2) Aspartate Amino Transf (AST/SGOT) 14U/L (0-50) Alanine Aminotransferase (ALT/SGPT) 16U/L (0-32) Alkaline Phosphatase 59U/L (25-165) Total Protein 5.9g/dL (6.4-8.4) Albumin 3.1g/dL (3.4-5.0) Discharge Medications Discharge Medications Allopurinol (Allopurinol) 100 Mg Tablet 100 MG PO DAILY Prescribed by: LINCOLN OLIVER MD Carvedilol (Carvedilol) 25 Mg Tablet 25 MG PO BID (Reported) Ferrous Sulfate (Ferrous Sulfate) 325 Mg Tablet 325 MG PO DAILY (Reported) Omeprazole (Omeprazole) 20 Mg Capsule.dr 20 MG PO DAILY (Reported) Pravastatin (Pravastatin) 20 Mg Tablet 20 MG PO DAILY (Reported) Sevelamer Carbonate (Renvela) 800 Mg Tablet 800 MG PO TIDWM Prescribed by: LINCOLN OLIVER MD Sitagliptin Phos (Januvia) 100 Mg Tablet 100 MG PO DAILY (Reported) Additional med instructions Your diabetes medicine glimepiride has been discontinued, you do not need it at this time. Your high blood pressure medicine benazepril has been discontinued, as your blood pressure is now well controlled on dialysis. You may continue to take your blood pressure and heart medicine called carvedilol. Your allopurinol dose has been reduced now that you are on dialysis. Followup Plan Disposition: To [facility], Dr. Ashley Follow-up plan Dialysis on 12/21 and further scheduled to be established. Discharge Diet: Renal Diet (follow guidance on phosphorus restriction) Discharge Activity: Other (as per physical therapy staff at [facility]) Patient Instructions You will have dialysis on 12/21 and on a schedule to be determined by the dialysis unit after that. Follow-up Provider: Chay Santiago DO Follow-up with PCP in: Other (as per guidance from the dialysis center) Provider: Chavez Montoya MD Follow-up in: Other (after discharge from [facility] for a posthospitalization follow-up appointment to check your blood pressure and diabetes, since medicines have been changed.) Mid-level Provider: Ana Ashley MD Follow-up with Mid-level in: Other (at [facility]) Time spent 45 minutes copies to: Rell Avery MD; Chay Santiago DO; Ana Ashley MD; Chavez Montoya MD, Jeffrey W MD December 20, 2016 12:26
[2016-12-20] MEDS ORDERED: SODIUM CHLORIDE 0.9% IV ONE (14:00)
[2016-12-20] MEDS ORDERED: DESMOPRESSIN IV ONE (14:00)
--- NOTE | 2016-12-20 14:31 | PCM.PNMED ---
Subjective Date of Service December 20, 2016 Subjective Katharine Veliz is a 76-year-old woman with past medical history significant for type II diabetes on oral agents and CTD stage IV was currently under treatment for acute kidney injury. Hospital day #6 Overnight: No acute events. Today: The patient states she is feeling better today. Her breathing is improved. She denies any cough, fevers, chills, or worsening shortness of breath, but remains on oxygen at 2-3 L. She has not ambulated. Continues to have bleeding from her catheter site. Plan discharge to SNF today is deferred due to inability to schedule outpatient dialysis, persistent hypoxia, persistent bleeding from catheter insertion site. . Exam Vital Signs Vital Sign - Last Date Time Temp Pulse Resp B/P Pulse Ox O2 Delivery O2 Flow Rate FiO2 12/20/16 12:00 36.5 120 20 115/78 90 OxyMask 6.00 Intake and Output 12/19/16 12/19/16 12/20/16 Cumulative From/Thru 15:00 23:00 07:00 12/15/16 17:47 - 12/20/16 05:49 Intake Total 755 ml 120 ml 5465 ml Output Total 1000 ml 0 ml 700 ml 6210 ml Balance -1000 ml 755 ml -580 ml -745 ml Intake Oral 400 ml 120 ml 2490 ml IV Total 355 ml 2975 ml Output Urine Total 0 ml 700 ml 1960 ml Urine/Stool Mix 100 ml Emesis 650 ml Ultrafiltrate 1000 ml 3500 ml # Voids 3 # Bowel Movements 2 8 Exam No distress. Fluent speech. Normal affect. She is lethargic and slow to answer but alert and oriented. Anicteric sclera, symmetric pupils Oropharynx is unremarkable, no facial droop. Neck is supple. Bilateral basilar crackles appreciated. Normal rate and effort. Tunnel catheter appreciated at the right chest with bleeding noted. Heart is regular without murmur gallop or rub. Abdomen soft, nondistended or tender. Extremities are normal for mild edema of both lower extremities with dressing on wound on right leg. Myoclonus absent. Skin is free of rash, lesions. No petechiae or ecchymosis. Joints are grossly normal. Cranial nerves are grossly normal. Motor strength is normal in all extremities. Trunk muscles are weak with difficulty sitting up. Normal muscular tone. IVs and Medications Medications Reviewed: Medications were reviewed in detail Lab and Diagnostics Result Diagram: 12/20/1620912/20/16209 X-Rays, CTs and MRIs X-RAY CHEST ONE VIEW, PORTABLE IMPRESSION: Patchy opacity in left lung base suspicious for atelectasis versus pneumonia. Dictated by: Taylor Van MD, PhD on 12/15/2016 at 12:24 Cardiac Echo Impressions Echocardiogram Report Name: KATHARINE VELIZ Study Date: 12/16/2016 Height Interpretation Summary The left ventricular cavity is small. There is mild concentric left ventricular hypertrophy. Left ventricular systolic function is low normal. The ejection fraction is estimated to be 50-55%. The right ventricle is mild to moderately dilated. Right ventricular systolic function is mildly reduced. Flattened septum is consistent with RV pressure/volume overload. The right ventricular systolic pressure is estimated at 34 mmHg assuming a right atrial pressure of 15 mm Hg. The left atrial size is normal. The right atrium is mildly dilated. There is moderate tricuspid regurgitation. There is no other significant valvular heart disease. The aortic root is normal size. There is a small loculated pericardial effusion located inferiorly. There is a moderate left-sided pleural effusion. There are no echocardiographic indications of cardiac tamponade. . Assessment & Plan Acute, Active or High-risk Problems: ESRD, present on admission, ongoing. Subclavian hemodialysis catheter placed. Dialysis initiated; 4 rounds inpatient prior to discharge; planned . - sevelamer 800 tid - allopurinol dose adjusted to 100 mg QD - PTH is 411; vit D levels pending Acute on chronic respiratory failure with hypoxia. She had mild bronchospasm felt to be due to fluid overload, responsive to dialysis. She may also have FREDIS and obesity related restrictive lung disease. - Oxygen 2 L - Wean as tolerated especially with increased activity and pulmonary toilet Diabetes mellitus type II, on oral agents, with recurrent episodes of hypoglycemia now resolved. - Blood glucose remained well controlled on no oral agents while on hospital diet - Discontinue glimepiride - Continue her current outpatient dosing of sitagliptin Chronic or Stable but Actively Managed Problems: Acute severe hypoglycemia, present on admission. She presented with hypoglycemia in range of 40-50. Associated with encephalopathy. This persisted for 4 days after her last dose of glimepiride. Subsequently resolved. - Resolved Community-acquired pneumonia, present on admission, active, stable. Initial symptoms of dyspnea with ambiguous chest x-ray resulted in 5 day course of antibiotics. Few clinical signs or symptoms of pneumonia. She benefited from 2-3L oxygen supplementation while inpatient. -Completed 5 days ceftriaxone plus azithromycin Hyponatremia, present on admission, resolved. Presenting serum sodium 125, associated with encephalopathy. Likely related to acute oliguric renal failure - Serum sodium 138 prior to discharge Normocytic anemia, likely multifactorial, likely secondary to iron deficiency anemia and chronic kidney disease, stable -Continue to monitor. -Will defer to nephrology regarding EPO. Essential hypertension, present on admission. Systolic blood pressure 111-133 prior to discharge on no antihypertensives. - Discontinue OSMEL inhibitor. - Continue her previously prescribed carvedilol, for telesales agent reevaluate in the future Metabolic myopathy of uremia. Patient had generalized weakness required assistance with ambulation and ADLs. - Discharge to SNF for physical therapy and rehabilitation She is DNR/DNI. VTE Prophylaxis: Sub-Q Heparin (Unfractionated) Resuscitation Status: DNR/DNI:Do Not Resuscitate/Intubate Time spent 40 minutes Dennis Moura MD December 20, 2016 14:31
[2016-12-20] MEDS: Azithromycin Inj 500 MG in Dextrose 5% w/Vial Mate 250 ML IV SCH (14:47)
--- NOTE | 2016-12-20 19:49 | NUR ---
Tele/O2/Tunnel Cath No reports of chest pain/pressure/discomfort. Tele mostly AFIB -- P waves not consistent, per telegraph installer bounces between flutter/fib/sinus tach. HR 90s-130s. BP within normal limits. Reports no SOB at rest, SPO2 on 4L oxymask low to mid 90s. Denies cough. No reports of n/v/d/c or abdominal pain. Patient's tunnel cath has been slowly oozing throughout shift. Pressure dressing changed x3. Patient did not ooze for approx 2 hours after 5lb sandbag removed this AM, began to bleed again and has not stopped for remainder of shift -- moderate amount of sanguineous drainage. MD, red leader and IV therapy notified. IV DDAVP administered x1 per MD orders which slowed ooze -- Sub Q heparin withheld throughout shift per MD orders.
[2016-12-21] VITALS (11 sets, daily range): BP systolic 95–138; BP diastolic 57–88; PULSE 91–137; RESP 16–26; O2SAT 92–96
[2016-12-21] MEDS ORDERED: MeTOProlol 1 mg/mL 5 mL Inj IVPUSH ONE (03:00)
[2016-12-21] MEDS: Pantoprazole 20 mg ER24 Tablet PO SCH (05:46)
--- NOTE | 2016-12-21 06:39 | NUR ---
Tunnel Catheter / Afib Pt R chest tunnel catheter continuously oozing throughout shift; gauze changed x3 throughout shift. 2lb and 5lb sandbags used intermittently; site slows slightly in oozing with 5lb sandbag. Pt denies any pain, area soft and nontender. paged and aware. Pt afib 120s at beginning of shift, increased and sustained in 140s as shift progressed. paged, one time order for 5mg IVP metoprolol given and administered with HR decreasing to 90s-100s for remainder of shift. VSS. Pt up to BSC with 1-2PA, tolerates fair. Q2H turns ongoing.
[2016-12-21] MEDS ORDERED: DESMOPRESSIN IV ONE (08:20)
[2016-12-21] MEDS ORDERED: SODIUM CHLORIDE 0.9% IV ONE (08:20)
[2016-12-21] MEDS: Heparin 5,000 Unit/mL Inj SUBQ SCH ×3 (08:30→23:31)
--- NOTE | 2016-12-21 11:13 | PCM.PNNEPH ---
Subjective Date of Service December 21, 2016 Subjective Patient continues to improve with dialysis. She denies any headache, chest pain , shortness of breath, nausea or vomiting. This morning her sodium is 135, potassium 4.2, chloride of 94, bicarbonate 27, BUN and creatinine were 36 and 2.8 respectively. Exam Vital Signs Vital Sign - Last Date Time Temp Pulse Resp B/P Pulse Ox O2 Delivery O2 Flow Rate FiO2 12/21/16 10:38 120 12/21/16 09:03 36.4 26 138/70 94 OxyMask 4.00 Intake and Output 12/20/16 12/20/16 12/21/16 Cumulative From/Thru 15:00 23:00 07:00 12/15/16 17:47 - 12/21/16 06:25 Intake Total 400 ml 0 ml 5865 ml Output Total 150 ml 320 ml 6680 ml Balance 250 ml -320 ml -815 ml Intake Oral 400 ml 0 ml 2890 ml IV Total 2975 ml Output Urine Total 150 ml 320 ml 2430 ml Urine/Stool Mix 100 ml Emesis 650 ml Ultrafiltrate 3500 ml # Voids 3 # Bowel Movements 8 Exam Neck is supple without adenopathy, thyromegaly, or jugular venous distention. Lungs are clear to auscultation. Heart is regular with soft systolic murmur. Abdomen soft without tenderness rebound guarding masses or hepatosplenomegaly. Extremities no tremor any evidence of any clubbing cyanosis or edema. Lab and Diagnostics Result Diagram: 12/20/16 0210 12/21/16 0320 X-Rays, CTs and MRIs X-RAY CHEST ONE VIEW, PORTABLE IMPRESSION: Patchy opacity in left lung base suspicious for atelectasis versus pneumonia. Dictated by: Taylor Van MD, PhD on 12/15/2016 at 12:24 Cardiac Echo Impressions Echocardiogram Report Name: RAYSHAWN VELIZ Study Date: 12/16/2016 Height Interpretation Summary The left ventricular cavity is small. There is mild concentric left ventricular hypertrophy. Left ventricular systolic function is low normal. The ejection fraction is estimated to be 50-55%. The right ventricle is mild to moderately dilated. Right ventricular systolic function is mildly reduced. Flattened septum is consistent with RV pressure/volume overload. The right ventricular systolic pressure is estimated at 34 mmHg assuming a right atrial pressure of 15 mm Hg. The left atrial size is normal. The right atrium is mildly dilated. There is moderate tricuspid regurgitation. There is no other significant valvular heart disease. The aortic root is normal size. There is a small loculated pericardial effusion located inferiorly. There is a moderate left-sided pleural effusion. There are no echocardiographic indications of cardiac tamponade. . 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 She is discharged today with instructions to follow up for dialysis on Friday. Chay Santiago DO December 21, 2016 11:13
--- NOTE | 2016-12-21 11:17 | NUR ---
Social Work- Readiness for Discharge Data: EMR reviewed. Pt is on day 6 of hospitalization for acute on chronic renal failure. Pt is not medically stable at this time as pt continues to bleed from cath site. Pt had D/C orders active this morning, though they have since been cancelled. Per MD in rounds, pt may be stable for discharge later today, SW awaits active discharge orders. ELOY spoke with Melanie, admissions at [facility], regarding pt's anticipated discharge, [facility] agreeable to pt arriving today if necessary. Melanie is aware that pt will require outpt dialysis at [facility]. ELOY received message from Bhavana at [facility] regarding pt's chair. Bhavana does not have a chair for pt at this time but she anticipates early next week the pt will be able to complete dialysis at [facility]. Pt will likely receive Outpatient Dialysis at [facility] Friday. is aware and continues to work on this with nephrology. Pt to discharge to [facility] with [facility] to follow. Pt's paperwork and PASRR are in chart. ELOY will create packet and fax orders. SW will continue to follow. Assessment: Pt for whom SNF is medically necessary Plan: Pt to discharge to [facility] with [facility] to follow. Pt's paperwork and PASRR are in chart. ELOY will create packet and fax orders. SW will continue to follow. MARYCRUZ Brooke
--- NOTE | 2016-12-21 13:31 | NUR ---
Dialysis note: 3 1/2 hours tx 2500 ml net UF Right catheter, dsg changed, no s/s of infection noted Pls see DTR for VS details Qb 400 No heparin given O2 @ 2L via NC on Tolerated tx, slept at intervals Catheter flushed, heparin dwelled and secured Stable condition at end of tx Report given to Kyra FREEMAN
--- NOTE | 2016-12-21 13:33 | NUR ---
Completed dialysis for 12/21/16 Patient completed dialysis for today. No adverse reaction. Tunnel cath dressing changed by street railway line installer. See her notes. Report called to Junior Frey, awaiting transport.
--- NOTE | 2016-12-21 15:00 | PCM.PNMED ---
Subjective Date of Service December 21, 2016 Subjective Katharine Veliz is a 76-year-old woman with past medical history significant for type II diabetes on oral agents and CTD stage IV was currently under treatment for acute kidney injury. Hospital day #7 The patient states she is feeling better today. Her breathing is improved. She denies any cough, fevers, chills, or worsening shortness of breath, but remains on oxygen at 2-3 L. She has not ambulated. Continues to have bleeding from her catheter site. Increased rate of her chronic A. fib. Plan discharge to SNF today is deferred due to poor A. fib rate control and persistent bleeding from catheter insertion site. . Exam Vital Signs Vital Sign - Last Date Time Temp Pulse Resp B/P Pulse Ox O2 Delivery O2 Flow Rate FiO2 12/21/16 10:38 120 12/21/16 09:03 36.4 26 138/70 94 OxyMask 4.00 Intake and Output 12/20/16 12/20/16 12/21/16 Cumulative From/Thru 15:00 23:00 07:00 12/15/16 17:47 - 12/21/16 06:25 Intake Total 400 ml 0 ml 5865 ml Output Total 150 ml 320 ml 6680 ml Balance 250 ml -320 ml -815 ml Intake Oral 400 ml 0 ml 2890 ml IV Total 2975 ml Output Urine Total 150 ml 320 ml 2430 ml Urine/Stool Mix 100 ml Emesis 650 ml Ultrafiltrate 3500 ml # Voids 3 # Bowel Movements 8 Exam General: Obese woman sitting in no acute distress HEENT: sclerae anicteric, oral mucosa moist Neck: Focal to assess JVP Chest: clear to auscultation Cardiac: S1S2, no murmur Abdomen: BS normal, non-tender Extremities: No edema; stasis dermatitis Neuro: A&O, cranial nerves symmetric, motor strength 5-/5 IVs and Medications Medications Reviewed: Medications were reviewed in detail Lab and Diagnostics Result Diagram: 12/20/16 0210 12/21/16 0320 X-Rays, CTs and MRIs X-RAY CHEST ONE VIEW, PORTABLE IMPRESSION: Patchy opacity in left lung base suspicious for atelectasis versus pneumonia. Dictated by: Taylor Van MD, PhD on 12/15/2016 at 12:24 Cardiac Echo Impressions Echocardiogram Report Name: KATHARINE VELIZ Study Date: 12/16/2016 Height Interpretation Summary The left ventricular cavity is small. There is mild concentric left ventricular hypertrophy. Left ventricular systolic function is low normal. The ejection fraction is estimated to be 50-55%. The right ventricle is mild to moderately dilated. Right ventricular systolic function is mildly reduced. Flattened septum is consistent with RV pressure/volume overload. The right ventricular systolic pressure is estimated at 34 mmHg assuming a right atrial pressure of 15 mm Hg. The left atrial size is normal. The right atrium is mildly dilated. There is moderate tricuspid regurgitation. There is no other significant valvular heart disease. The aortic root is normal size. There is a small loculated pericardial effusion located inferiorly. There is a moderate left-sided pleural effusion. There are no echocardiographic indications of cardiac tamponade. . Assessment & Plan Acute, Active or High-risk Problems: ESRD, present on admission, ongoing. Subclavian hemodialysis catheter placed. Dialysis initiated; 4 rounds inpatient prior to discharge; planned . - sevelamer 800 tid - allopurinol dose adjusted to 100 mg QD - PTH is 411; vit D levels pending - She will need dialysis at [facility] on 12/24; then outpatient hemodialysis thereafter Hemodialysis catheter bleeding, acute. - Continue pressure bandages and sandbag compression - May repeat DDAVP 1 as needed Chronic atrial fibrillation, currently with poor rate control. - Titrate upward on beta sahra Acute on chronic respiratory failure with hypoxia. She had mild bronchospasm felt to be due to fluid overload, responsive to dialysis. She may also have FREDIS and obesity related restrictive lung disease. - Continue to try to wean Oxygen 2 L Diabetes mellitus type II, on oral agents, with recurrent episodes of hypoglycemia now resolved. - Blood glucose remained well controlled on no oral agents while on hospital diet - Discontinue glimepiride - Continue her current outpatient dosing of sitagliptin Chronic or Stable but Actively Managed Problems: Acute severe hypoglycemia, present on admission. She presented with hypoglycemia in range of 40-50. Associated with encephalopathy. This persisted for 4 days after her last dose of glimepiride. Subsequently resolved. - Resolved Community-acquired pneumonia, present on admission, active, stable. Initial symptoms of dyspnea with ambiguous chest x-ray resulted in 5 day course of antibiotics. Few clinical signs or symptoms of pneumonia. She benefited from 2-3L oxygen supplementation while inpatient. - Completed 5 days ceftriaxone plus azithromycin Hyponatremia, present on admission, resolved. Presenting serum sodium 125, associated with encephalopathy. Likely related to acute oliguric renal failure - Resolved Serum sodium 138 prior to discharge Normocytic anemia, likely multifactorial, likely secondary to iron deficiency anemia and chronic kidney disease, stable -Continue to monitor. -Will defer to nephrology regarding EPO. Essential hypertension, present on admission. Systolic blood pressure 111-133 prior to discharge on no antihypertensives. - Increase carvedilol, for commissioning agent reevaluate OSMEL inhibitor in the future Metabolic myopathy of uremia. Patient had generalized weakness required assistance with ambulation and ADLs. - Discharge to SNF for physical therapy and rehabilitation She is DNR/DNI. Pain Evaluation: Adequate Pain Control VTE Prophylaxis: Sub-Q Heparin (Unfractionated) VTE Mechanical Devices: Intermittant Pneumatic CD Resuscitation Status: DNR/DNI:Do Not Resuscitate/Intubate Time spent 35 min Dennis Moura MD December 21, 2016 15:00
--- NOTE | 2016-12-21 19:15 | NUR ---
Tele/O2 No reports of chest pain/pressure/discomfort. Tele AFIB/FLUTTER --HR 90s-140s. Reports no SOB at rest, SPO2 on 4L oxymask low to mid 90s. Denies cough. No reports of n/v/d/c or abdominal pain. 1PA to BSC, oliguria. Decreased appetite.
[2016-12-22 03:24] VITALS: BP 121/64; PULSE 111; RESP 18; O2SAT 96
[2016-12-22 05:38] VITALS: PULSE 97
--- NOTE | 2016-12-22 05:49 | NUR ---
Tele/ dialysis site Tele Afib/ Aflutter 70-120. VS stable, pt denies any pain. Right upper chest HD tunnel cath remains asymptomatic. Dressing c/d/i no oozing noted. sp02 maintained on 4 L oxymask, sat in the mid 90s.
[2016-12-22] MEDS: Pantoprazole 20 mg ER24 Tablet PO SCH (06:17)
[2016-12-22] MEDS: Heparin 5,000 Unit/mL Inj SUBQ SCH (08:30)
[2016-12-22 08:36] VITALS: BP 123/53; PULSE 82; RESP 20; O2SAT 94
--- NOTE | 2016-12-22 11:29 | NUR ---
Social Work- Discharge Data: EMR reviewed. Pt is on day 7 of hospitalization for acute on chronic renal failure. Pt is medically stable at this time. Discharge orders are active. T/C to Melanie, admissions at [facility], who is agreeable to accepting pt today. T/C to Outpt auto collision repair instructor at [facility] who confirms that pt has chair at [facility] beginning 12/24. Pt has copy of her dialysis schedule signed by Barbara in her room. Pt's dialysis schedule is Friday, , and Friday beginning FridayDecember 24 at 7:45 am. ELOY updated [facility] with this information, MV agreeable. T/C to pt's son Madhav regarding pt's discharge today and kidney dialysis schedule. Madhav is agreeable. Madhav to update the rest of the family regarding discharge. ELOY created packet and faxed orders. Melanie coordinated transport via wheelchair van at 1430. Pt to discharge to [facility] with [facility] to follow. HUI, RN, pt/family, and [facility] all updated and agreeable to plan. Assessment: Pt for whom SNF is medically necessary Plan: Pt to discharge to [facility] with [facility] to follow, transport via wheelchair van at 1430. Pt to begin dialysis at [facility] December 24 at 0745. HUI, RN, pt/family, and [facility] all updated and agreeable to plan. MARYCRUZ Brooke
[2016-12-22 11:33] VITALS: PULSE 86
[2016-12-22 12:30] VITALS: BP 119/72; PULSE 74; RESP 18; O2SAT 94
--- NOTE | 2016-12-22 14:30 | NUR ---
Transfer to SNF Pt ate both breakfast and lunch today. She received all of her morning medications. She is A&O, answering questions appropriately. No c/o pain or discomfort. Telemetry leads were removed. IVs were removed. R leg remains wrapped in Coban per wound care. This RN called and gave report to the receiving RN at the SNF. The transport form was filled out. FLEXOGRAPHIC PRESS OPERATOR helped patient get cleaned up and ready while gathering all personal belongings. Pt left the facility with wheelchair transport around 1435 with oxygen, nasal canula, and all personal belongings.
[2016-12-28 07:14] LABS: Glimepiride Negative ng/mL (80-250); Tolazamide Negative ug/mL (UP TO 80)
== END 2016-12-22 15:38 | DRG 682 ==
LOC: MOC 11:03 → PCC 12-16 22:15
PROVIDERS: ADMIT Hospitalist; ATTEND Hospitalist
PROC: 05HM33Z Insertion of Infusion Device into Right Internal Jugular Vein, Percutaneous Approach (ICD-10-PCS; principal; 2016-12-17)
PROC: B513ZZA Fluoroscopy of Right Jugular Veins, Guidance (ICD-10-PCS; 2016-12-17)
PROC: 5A1D60Z (ICD-10-PCS; 2016-12-19)
DX: N17.9 Acute kidney failure, unspecified (principal); J18.9 Pneumonia, unspecified organism; J96.21 Acute and chronic respiratory failure with hypoxia; I12.0 Hypertensive chronic kidney disease with stage 5 chronic kidney disease or end stage renal disease; E87.1 Hypo-osmolality and hyponatremia; E87.2 Acidosis; N18.5 Chronic kidney disease, stage 5; I48.2 Chronic atrial fibrillation; E11.649 Type 2 diabetes mellitus with hypoglycemia without coma; D63.1 Anemia in chronic kidney disease; Z79.84 Long term (current) use of oral hypoglycemic drugs; Z66 Do not resuscitate; E11.22 Type 2 diabetes mellitus with diabetic chronic kidney disease

== ENCOUNTER 2017-02-06 20:38 | Emergency (ER) | payer MEDICARE ==
[~2017-02-06] VITALS: Ht 172.7 cm; Wt 83.6 kg
[~2017-02-06 20:38] MED LIST: CARV25TA2 PO; FERR-83 PO; OMEP20CA11 PO; PRAV20TA2 PO; SEVE800T7 PO; SITA100T12 PO; ZYL100 PO
[2017-02-06 20:42] VITALS: BP 125/57; PULSE 104; RESP 26; O2SAT 93
--- NOTE | 2017-02-06 20:55 | ED.REPORT ---
HPI-General Illness Date of Service Feb 06, 2017 ED Provider: Dr. Francois Pt is a 76 y/o female w/ a hx of ESRD on dialysis, HTN, NIDDM, a-fib/flutter, presenting to the ED via EMS from [facility] with family due to atrial flutter seen on telemetry. The patient was found to be in atrial flutter while she was at [facility] and was brought over here for "precautionary measures". They do not know why an EKG was taken. Pt denies CP, SOB, fever, chills, lightheadedness , palpitations, numbness, weakness, vision or speech changes, abdominal pain. The patient feels completely normal and does not want to be here. The patient's blood glucose is abnormally elevated at 300 today above her baseline of 125- 150. The patient recently had her Januvia dose cut in half. The patient is not on anticoagulants. She is scheduled to have a new dialysis fistula placed on Friday of next week. Full review of systems is completely negative and patient states that she feels completely at baseline. She has no complaints whatsoever and states that she would like to go home. Nursing Notes Stated Complaint: ATRIAL FIBRILLATION Chief Complaint: Dysrhythmia/Cardiac Nursing Notes Reviewed: Yes Allergies: Coded Allergies: No Known Drug Allergies (Verified Allergy, Unknown, 12/15/16) Scheduled Allopurinol (Allopurinol) 100 Mg Tablet 100 MG PO DAILY Carvedilol (Carvedilol) 25 Mg Tablet 25 MG PO BID Ferrous Sulfate (Ferrous Sulfate) 325 Mg Tablet 325 MG PO DAILY Omeprazole (Omeprazole) 20 Mg Capsule. 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: Jack Past Medical History ESRD on dialysis Hypertension GERD NIDDM Atrial fib/flutter Past Surgical History Dialysis fistula to be placed in 2 days as of 02/06/17 Cataracts Tubal ligation Appendectomy Cholecystectomy Smoking History Never Smoker Social History Lives at [facility] Ambulatory Status Independent Review of Systems Full Review of Systems Constitutional: Denies: Chills, Fever Respiratory: Denies: Non-productive cough, Shortness of breath Cardiovascular: Denies: Chest pain, Dyspnea on exertion, Palpitations GI: Denies: Abdominal pain, Nausea, Vomiting Musculoskeletal: Denies: Back pain Neurologic: Denies: Focal weakness, Headache, Numbness, Unable to speak, Vision change Complete sys rev & neg: except as marked. Physical Exam Vital Signs Vital Signs Date Time Temp Pulse Resp B/P Pulse Ox O2 Delivery O2 Flow Rate FiO2 02/06/17 22:32 36.5 103 25 141/68 94 Room Air 02/06/17 22:17 103 25 141/68 94 Room Air 02/06/17 20:42 36.5 104 26 125/57 93 Room Air Initial VS: Reviewed, Vital signs abnormal Head / Eyes: Atraumatic, Normocephalic, PERRL ENT: Mucous membranes moist, Conjunctiva normal, No scleral icterus Neck: Supple, Full range of motion Respiratory: Breath sounds normal, Clear to auscultation, No respiratory distress Abdomen / GI: Soft, Non-tender, No distention Extremities: Vascular intact, Neuro intact, No swelling Skin: Warm, Dry, No cyanosis Neurologic: Alert, Oriented, Nonfocal Psychiatric: Mood/affect normal, Behavior normal, Normal thought content General/Constitutional: Awake, Alert, No acute distress, Well appearing, Cooperative, Not toxic appearing Cardiovascular: Heart rate NL, Regular rhythm, Heart sounds NL, No gallop, No murmurs, No rubs, Cap refill not delayed, Peripheral circulation NL Trace pitting edema of bilateral lower extremities extending half way to knee Interpretation & Diagnostics Lab Results Interpretation Result Diagram: 02/06/17 2107 02/06/17 2107 Test 02/06/17 21:07 02/06/17 21:08 White Blood Count 7.1th/mm3 (3.8-10.1) Red Blood Count 3.32mil/mm3 (3.90-5.20) Hemoglobin 8.9g/dL (12.0-15.6) Hematocrit 30.7% (35.0-46.0) Mean Corpuscular Volume 92.5fL (81-100) Mean Corpuscular Hemoglobin 26.8pg (27.0-35.0) Mean Corpuscular Hemoglobin Concent 29.0% (32.0-37.0) Red Cell Distribution Width 18.5% (12.3-15.4) Platelet Count 164bil/L (150-400) Neutrophils (%) (Auto) 70.0% (40-74) Lymphocytes (%) (Auto) 15.8% (14-46) Monocytes (%) (Auto) 10.6% (4-12) Eosinophils (%) (Auto) 2.4% (0-5) Basophils (%) (Auto) 0.1% (0-3) Sodium Level 131mEq/L (134-144) Potassium Level 4.1mEq/L (3.5-5.2) Chloride Level 91mEq/L (97-108) Carbon Dioxide Level 25mmol/L (18-29) Blood Urea Nitrogen 17mg/dL (8-27) Creatinine 1.82mg/dL (0.57-1.00) Estimat Glomerular Filtration Rate 39mL/min (>59) Glucose Level 341mg/dL (60-99) Calcium Level 8.7mg/dL (8.5-10.1) Magnesium Level 1.4mg/dL (1.6-2.6) Total Bilirubin 0.2mg/dL (0.0-1.2) Aspartate Amino Transf (AST/SGOT) 12U/L (0-50) Alanine Aminotransferase (ALT/SGPT) 7U/L (0-32) Alkaline Phosphatase 89U/L (25-165) Troponin T 0.023ug/L (0.0-0.011) Total Protein 6.8g/dL (6.4-8.4) Albumin 3.1g/dL (3.4-5.0) Hold Johnson Top Tube Received (Received) ECG Interpretation ECG Interpretation: Atrial flutter with 3:1 block rate [address] or T wave abnormalities Compared to EKG 12/20/16 EKG is unchanged Time: 21:35 Interpreted by: ED physician Normal ECG Interpretation: No acute ischemic changes X-Ray Chest Interpretation Chest Xray Interpretation: IMPRESSION: 1. Mild pulmonary edema. Dictated by: Roberto Stephens M.D. on 02/06/2017 at 21:27 Approved by: Roberto Stephens M.D. on 02/06/2017 at 21:31 View: Portable, 1 view Interpretation / Wet Read by: Interpret - Radiologist Re-Eval/Medical Decision Med Decision/Clinical Course Pt is a 76 y/o female w/ a hx of ESRD on dialysis, HTN, NIDDM, a-fib/flutter, presenting to the ED via EMS from [facility] with family due to atrial flutter seen on telemetry. The patient was found to be in atrial flutter while she was at [facility] and was brought over here for "precautionary measures". They do not know why an EKG was taken. Pt denies CP, SOB, fever, chills, lightheadedness , palpitations, numbness, weakness, vision or speech changes, abdominal pain. The patient feels completely normal and does not want to be here. The patient's blood glucose is abnormally elevated at 300 today above her baseline of 125- 150. The patient recently had her Januvia dose cut in half. The patient is not on anticoagulants. She is scheduled to have a new dialysis fistula placed on Friday of next week. Full review of systems is completely negative and patient states that she feels completely at baseline. She has no complaints whatsoever and states that she would like to go home. Here in the emergency department the patient is afebrile, hemodynamically stable and in no apparent distress. EKG was obtained and demonstrated atrial flutter however when compared to prior EKGs this is not a new finding. Labs notable as below: CBC: no leukocytosis, stable HCT of 30.7 CMP: troponin 0.023 (no previous available), BUN 17, creatinine 1.82 improved from prior baseline, no significant electrolyte abnormalities Patient is noted to have a mildly elevated troponin. That being said there is no prior baseline troponin value and this is in the setting of chronic kidney disease. In the absence of any symptoms whatsoever suggestive of acute coronary syndrome this is not particularly concerning. Of note she denies any history of coronary artery disease and she has had no chest pain, shortness of breath weakness or even nonspecific acute coronary syndrome symptoms. Patient does not desire to stay in the emergency department or undergo further workup and would like to go home. I feel that this is appropriate. I had a long discussion with patient and family regarding anticoagulation. She has been in atrial fibrillation previously as documented on older EKGs and apparently has never been on Coumadin. She does have a relatively high CHADS VASC and she probably be anticoagulated. I discussed with her the risk of stroke. That being said, she is scheduled for placement of dialysis fistula early next week and we have therefore opted to defer initiation of anticoagulation until after this procedure. She will discuss this further with her primary care physician as well as licensed aircraft maintenance engineer. Prior to discharge follow-up and return precautions were reviewed in detail with the patient who verbalized understanding and agreement with the plan. The patient was discharged in stable condition. Time of Eval: 22:18 Re-Evaluation/Progress Note: F/U instructions and RTER warnings given. All questions addressed. Counseled Regarding: Diagnosis, Lab results, Need for follow-up, When/why to return to ED Discharge & Departure Primary Impression: Atrial flutter Atrial flutter type: typical Qualified Code: I48.3 - Typical atrial flutter Additional Impressions: Elevated troponin Chronic kidney disease Chronic kidney disease stage: unspecified stage Qualified Code: N18.9 - Chronic kidney disease, unspecified Disposition: Home Discharge Condition All VS Reviewed: Yes Condition: Stable Patient Instructions: Atrial Flutter (ED) Additional Instructions: Thank you for seeking care at the emergency room. You are in an abnormal heart rhythm called atrial flutter which you have been in previously. This rhythm is not dangerous although it is a risk factor for strokes. You may need to be on blood thinners to combat the risk of stroke but I am not going to start you on these today because of your upcoming procedure. Discuss starting blood thinners with Dr. Santiago and your primary care physician after the procedure. Our primary goal today in the ED was to evaluate you for any life-threatening conditions. Your evaluation was reassuring. You should return to the ED immediately if you develop fevers, vomiting, cough, shortness of breath, chest pain, profuse sweating, headache, one-sided numbness or weakness of your arms or legs, speech or vision changes, lightheadedness, weakness or any other concerning signs or symptoms. Thank you for letting us partake in your care today. Referrals: Chavez Montoya MD (PCP) Santiago,Chay D DO Scribe Attestation Portions of this note were transcribed by José Miguel Irizarry. I, Dr. Francois, personally performed the history, physical exam and medical decision-making; I reviewed and confirmed the accuracy of the information in the transcribed note. Signed by Dorothea Boone, 02/06/17 - 2199 copies to: Chay Santiago DO; Chavez Montoya MD, Beck O MD Feb 06, 2017 20:55 JOSÉ MIGUEL IRIZARRY Feb 06, 2017 21:36
[2017-02-06 21:15] LABS: BASOPHILS % (AUTO) 0.1 % (0-3); EOSINOPHILS % (AUTO) 2.4 % (0-5); MONOCYTES % (AUTO) 10.6 % (4-12); Mean Corpuscular Hemoglobin 26.8 pg (27.0-35.0); Mean Corpuscular Volume 92.5 fL (81-100); Platelet Count 164 bil/L (150-400)
--- NOTE | 2017-02-06 21:32 | DRSVH ---
PROCEDURE: X-RAY CHEST ONE VIEW, PORTABLE ([id number]) INDICATIONS: sob TECHNIQUE: One view of the chest was acquired. COMPARISON: [facility], CR, XR CHEST 1VW (PORTABLE), 12/15/2016, 12:03. FINDINGS: Surgical changes and devices: There is a right internal jugular catheter with the tip at the cavoatr ial junction. Lungs and pleura: No pleural effusions or pneumothorax. There is elevation of the right hemidiaphra gm. Mild pulmonary vascular prominence is present compatible with mild edema. Mediastinum: Mediastinal contours appear normal. Heart size is normal. Bones and chest wall: No suspicious bony lesions. Overlying soft tissues appear unremarkable. IMPRESSION: 1. Mild pulmonary edema. Dictated by: Roberto Stephens M.D. on 02/06/2017 at 21:27 Approved by: Roberto Stephens M.D. on 02/06/2017 at 21:31
[2017-02-06 21:34] LABS: TROPONIN T 0.023 ug/L (0.0-0.011)
[2017-02-06 21:46] LABS: Magnesium 1.4 mg/dL (1.6-2.6)
[2017-02-06 22:17] VITALS: BP 141/68; PULSE 103; RESP 25; O2SAT 94
[2017-02-06 22:32] VITALS: BP 141/68; PULSE 103; RESP 25; O2SAT 94
[2017-02-11] MEDS ORDERED: VIT D PO (12:03)
== END 2017-02-06 22:33 | disposition home or self-care (01) ==
LOC: EDUNIT# 20:38 → EDBD 20:38 → SED 20:38
DX: I48.3 Typical atrial flutter (principal); I13.11 Hypertensive heart and chronic kidney disease without heart failure, with stage 5 chronic kidney disease, or end stage renal disease; E11.22 Type 2 diabetes mellitus with diabetic chronic kidney disease; N18.6 End stage renal disease; E11.59 Type 2 diabetes mellitus with other circulatory complications; I48.91 Unspecified atrial fibrillation; R77.8 Other specified abnormalities of plasma proteins; K21.9 Gastro-esophageal reflux disease without esophagitis; Z99.2 Dependence on renal dialysis

== ENCOUNTER → 2017-02-11 | Day surgery (SDC) | payer MEDICARE ==
--- NOTE | 2017-02-06 10:05 | PCM.ANEPRE ---
Anesthesia Pre-Op Review Reason for Review: Endstage renal disease, EjF 50-55%, Dialysis 3 x wk Anesthesia Recommendations: Proceed with Procedure Additional Comments This is a 76-year-old female who was admitted to [facility] November 2016 with progressive acute on chronic renal failure. I believe she has chronic kidney disease stage 3-4. Resuscitation efforts were also discussed and she is quite clear that she wants to be a DNR/DNI and can be discussed and possibly suspended during the procedure. HgbA1C 6.4%. EF in November 50-55%. Ok to proceed with usual DOS evaluation. Chart Reviewed by: Mingo Carter MD, MD Feb 06, 2017 10:05
[2017-02-11] VITALS (9 sets, daily range): BP systolic 105–137; BP diastolic 60–75; PULSE 95–104; RESP 8–18; O2SAT 91–99
[~2017-02-11] VITALS: Ht 172.7 cm; Wt 89.8 kg
[~2017-02-11] MED LIST changes: +0.9% Sodium Chloride 1,000 ML IV ONE; +0.9% Sodium Chloride 250 ML IV PRN; +0.9% Sodium Chloride 500 ML IV ONE; +Bupivacaine-MPF 0.5% 30 mL Inj INFILTRATE ONE; +Dexamethasone 4 mg/mL Inj IVPUSH PRN; +Dexamethasone 4 mg/mL Inj ONE; +EPHEDrine Sulfate 50 mg/mL Inj IVPUSH PRN; +Glycopyrrolate 0.2 MG/ML 1mL Inj ONE; +HYDROmorphone 1 mg/mL Inj IVPUSH PRN; +Heparin 5,000 Unit/mL Inj IR ONE; +Lactated Ringer's 1,000 ML IV SCH; +MeTOProlol 1 mg/mL 5 mL Inj ONE; +MetoCLOpramide 5 mg/mL 2 mL Inj IVPUSH PRN; +MetoCLOpramide 5 mg/mL 2 mL Inj ONE; +Neostigmine 1 mg/mL 10 mL Inj ONE; +Ondansetron 2 mg/mL 2 mL Inj IVPUSH PRN; +Ondansetron 2 mg/mL 2 mL Inj ONE; +Papaverine 30 mg/mL 2 mL Inj XX ONE; +Phenylephrine 10,000 mCg/mL Inj IVPUSH PRN; +Phenylephrine/NS 100 mCg/mL 10 mL Syringe IVPUSH ONE; +Propofol 10,000 mCg/mL 20 mL Inj ONE; +Rocuronium 10 mg/mL 5 mL Inj ONE; +VIT D PO; +fentaNYL-PF 50 mCg/mL 2 mL Inj IVPUSH PRN; +fentaNYL-PF 50 mCg/mL 2 mL Inj ONE; +oxyCODONE-Acetamin 5-325 mg Tablet PO PRN
--- NOTE | 2017-02-11 12:18 | PCM.HPANE ---
Patient Data Date of Service: Feb 11, 2017 Surgeon Admitting Provider: Attending Provider:Iris Larios MD Primary Care Physician:Chavez Montoya MD Other Provider:Julieta Kessler Anesthesia Reason for Visit Chronic Kidney Disease Ht/WT & BMI Height (Feet): 5 Height (Inches): 8 Weight (Kilograms): 89.8 Body Mass Index 30.00 Allergies Coded Allergies: No Known Allergies (Unverified , 02/11/17) Past Anesthesia History Anesthesia History: Denies:: Anesthesia Reactions Diabetes History Hx Diabetes?: Yes Current Bedside Blood Glucose: 178 MRSA MRSA: No Medications Hypertension Medication: Yes Home Meds Incl Beta Candace: Yes Date Beta Candace Taken: Feb 11, 2017 Time Beta Candace Taken: 0700 Active Scripts Allopurinol 100 Mg [id number] Mg PO DAILY #30 TABLET Prov:Dennis Moura MD 12/20/16 Sevelamer Carbonate (Renvela)800 Mg Wqegfe689 Mg PO TIDWM #90 TABLET Prov:Dennis Moura MD 12/20/16 Reported Medications [Vit D] No Conflict Check50,000 Units PO M,W,F 02/11/17 Carvedilol 25 Mg Tysnyp54 Mg PO BID Ref 0 12/15/16 Omeprazole 20 Mg Capsule.dr20 Mg PO DAILY Ref 0 12/15/16 Pravastatin 20 Mg Xrbwco84 Mg PO DAILY Ref 0 12/15/16 Ferrous Sulfate 325 Mg Wadrtw623 Mg PO DAILY 30 Days Ref 0 12/15/16 Sitagliptin Phos (Januvia)100 Mg Ihueoe194 Mg PO DAILY Ref 0 12/15/16 History History of ENT Problems?: Yes HEENT History: Positive for:: Cataracts (surgery 4 y/o) Sinus Problem Denture Type: Full- Upper Full- Lower Teeth Condition: Missing Teeth Hx of Heart Problems?: Yes Cardiovascular History: Positive for:: Atrial Fibrillation Edema Hypertension Denies:: Cardiac Surgery Chest Pain Congestive Heart Failure Other Cardiac History: no CP/SOB/syncopal episodes; recent ER visit for aflutter - asymptomatic - noted on ECG - no further workup was warranted and pt discharged back to SNF Hx of Respiratory Problem?: No Respiratory History: Denies:: Asthma COPD Chest Surgery Dyspnea Emphysema Hemoptysis Pneumonia Tuberculosis Hx Neurologic Problems?: No Neurological History: Positive for:: Dizziness Headaches Denies:: CVA Dementia Parkinson's Disease Seizures TIA Hx of GI Problems?: Yes Gastrointestinal History: Positive for:: Gastroesphageal Reflux Other GI Pertinent History: off GERD medications Hx of Problems?: Yes Genitourinary History: Denies:: Kidney Stones Urinary Tract Infection HX of Peritoneal Dialysis: No Other Pertinent History: dialyzed 02/10/17 via catheter Female Hx: Denies:: Currently Endometriosis Pelvic Inflammatory Problems with Breasts? Skin History: Denies:: History Skin Disorders? Pressure Ulcers Hx Musculoskeletal Problems?: No Musculoskeletal History: Positive for:: Musculoskeletal Trauma Denies:: Back Injury Hx of Psycho/Social Problems?: No Psycho Social History: Denies:: Anxiety Bipolar Disorder Hx Depression Hx Surgeries?: Yes (tubal ligation, appendectomy) Hx Any Other Health Problems?: Yes Other History: Denies:: Cancer Hospitalization History Blood Transfusions: Denies:: Blood Transfuse Reaction Blood Transfusions Hx Diabetes: YesBedside Blood Glucose: 178 Hx Alcohol Use: NoHx Substance Use: No Smoking Status: Never Smoker Have You Smoked inLast 12 mo: No Stop/Bang Treated for Sleep Apnea?: No Do You Have a CPAP Machine?: No S-Snoring: Do You Snore Loudly: No T-Tired: feel tired, fatigued: No O-Obsered: Observed not breath: No P-Blood Pressure: treated: Yes B- Body Mass Index > 35 kg/m2: No A- Age over 50: No N- Neck Large Circumference: No G- Gender Male: No FREDIS Risk Assessment: Low Risk, <3 Yes Risk Assessment Category Category 1A: Patient has history of documented sleep apnea, and HAS NOT received any narcotic, sedative or anesthesia administration during this stay. Category 1B: Patient has history of documented sleep apnea, and HAS received any narcotic , sedative or anesthesia administration during this stay Category 2: Patient has SUSPECTED Obstructive Sleep Apnea, and HAS received any narcotic , sedative or anesthesia administration during this stay. Category 3: Patient has SUSPECTED Obstructive Sleep Apnea and HAS NOT received narcotic, sedative or anesthesia administration during this stay. Category 4: Outpatient in Procedural Areas with known sleep apnea or who screen positive for High Risk via the STOP/BANG questionnaire. Exam Exam Vital Signs Vital Signs Date Time Temp Pulse Resp B/P Pulse Ox O2 Delivery O2 Flow Rate FiO2 02/11/17 11:43 Supplement Oxygen 02/11/17 11:23 36.3 95 18 137/75 96 Room Air General Appearance: Alert, Oriented X3, Cooperative, No Acute Distress HEENT/AIRWAY: MP 3, Neck Movement (FROM), Mouth Opening (3), Other (TMD3) Lungs: Diminished (significantly diminished bibasilar) Heart: Exam Unremarkable, Regular Rate/Rhythm, Normal S1, Normal S2, No Murmurs /Rubs/Gallops Meds/Labs/Diagnostics Admission Meds Current Medications Sodium Chloride (Normal Saline) 500 ml @ ud STK-MED ONCE IV Last administered on 02/11/17t 11:08; Start 02/11/17 at 11:08; Stop 02/11/17 at 11:09; Status DC Bedside Blood Glucose: 178 Labs Test 02/11/17 11:38 Potassium Level 3.9mEq/L (3.5-5.2) Plan Impression Patient chart reviewed, patient interviewed and anesthestic plan with risks, benefits, and alternatives discussed, and informed consent obtained. NPO per Anesth. Guidelines: Yes ASA Physical Status: ASA4 Life Threatening Anesthetic Plan: GA Bene/Risks/Altern/Consents: Yes HP Complete Prior to Induction: Yes Tarik Schultz MD Feb 11, 2017 12:18
--- NOTE | 2017-02-11 15:39 | PCM.SURGOP ---
Surgical Operative Report Date of Service: Feb 11, 2017 Pre Operative Diagnosis Diabetic nephropathy Post Operative Diagnosis Diabetic nephropathy Procedure: Left radiocephalic (Kelsey) arteriovenous fistula Surgeon and Heel Attacher: Surgeon: Iris Larios MD Assistants: Chikis Currie MD; Shwetha Muniz MS3 An assistant professor of history was required for dissection and retraction. Indication for Procedure This is a 76-year-old woman who recently was initiated on hemodialysis using a tunneled catheter after she was found to be in severe renal failure due to diabetic nephropathy. Therefore fistula creation was requested by her pinsetter mechanic helper. Findings: Adequate left radial and cephalic vein to create a sizable anastomosis with a palpable pulse and excellent Doppler signal at the end of the case. Procedure Details The patient was brought to the operating room and placed in supine position. Moderate anesthesia was induced. A warming blanket and SCDs were placed. The operative field was prepped and draped in sterile fashion. Preop pause was performed to confirm the correct patient, procedure, site, and side. A longitudinal incision was made just lateral to the left radial artery, 5 cm in length. The artery was easily identified and the dissection proceeded in order to identify the left cephalic vein, which was found to be large enough to create an adequate fistula. The vein was dissected proximally and distally, as was the artery. The radial artery had a small branch which was clipped. Vessel loops were placed around the proximal and distal ends of the main artery. The vein had a bifurcation that was dissected. The distal ends of the vein were tied off and the bifurcation was opened to create a mercado. An arteriotomy was created and the ends of the artery and vein were flushed with heparinized saline. An anastomosis was created from the side of the artery to the end of the vein using a running 6-0 Prolene suture. The anastomosis itself was approximately 1.5 cm in length. There was a palpable pulse, trace thrill, and pulsatile flow on Doppler at the end of the case through the anastomosis. Subcutaneous tissue was closed with interrupted 3-0 Vicryl stitches. The skin was closed with a running 4-0 Vicryl stitch. Dermabond was placed. The patient was awakened from moderate sedation and taken to the post procedure unit in good condition. Complications There were no periprocedural complications identified. Surgical Specimen Removed: No Specimen sent to Pathology: No Anesthetic Plan: GA Grafts, Implants: None Output, Estimated Blood Loss: 5 (ml) Blood Administration during ty: No Iris Larios MD Feb 11, 2017 15:39
--- NOTE | 2017-02-12 08:23 | PCM.ANEP1 ---
Post Anesthesia PACU Phase 1 Assessment Date of Service: Feb 12, 2017 Anesthetic Administered: GA Level of Alertness: Awake, talking SEVILLA's with Equal Strength: Yes Pain: No Pain Scale Score: 0 Nausea or Vomiting: No CV Function & Hydration Stable: Yes Airway Device: none Oxygen Delivery: Simple Mask Lungs: Diminished (significantly diminished bibasilar) PACU Phase 2 Assessment Complications: No Follow up Care: N/A Patient Instructions Provided: N/A Tarik Schultz MD Feb 12, 2017 08:23
== END | disposition home or self-care (01) ==
LOC: SAS 11:04
PROVIDERS: ATTEND Surgery
DX: N18.4 Chronic kidney disease, stage 4 (severe) (principal); E11.42 Type 2 diabetes mellitus with diabetic polyneuropathy; E11.22 Type 2 diabetes mellitus with diabetic chronic kidney disease; I12.9 Hypertensive chronic kidney disease with stage 1 through stage 4 chronic kidney disease, or unspecified chronic kidney disease; I48.91 Unspecified atrial fibrillation; R42 Dizziness and giddiness; K21.9 Gastro-esophageal reflux disease without esophagitis; Z99.2 Dependence on renal dialysis; Z79.899 Other long term (current) drug therapy
CPT/HCPCS: 36415; 36825; 84132; J1100; J1644; J2250; J2370; J2405; J2710; J2765; J3010; J7030